=== PATIENT | male | born 1960 | race Caucasian/White ===

== ENCOUNTER 2018-07-12 19:24 | Emergency (ER) | payer OTHER, BC ==
[~2018-07-12] VITALS: Ht 182.9 cm; Wt 113.0 kg
[~2018-07-12 19:24] MED LIST: AMLODIPINE BESYL5 MG PO; ASPIRIN EC81 MG PO; CARVEDILOL25 MG PO; EFFIENT10 MG; EFFIENT10 MG PO; GLYBURID-METFO1 EACH PO; HYDROCHLOROTHIA25 MG PO; LIPITOR40 MG PO; LISINOPRIL-HCT1 EACH PO; NITROGLYCERIN0.4 MG SL; OMEPRAZOLE20 MG PO; ZYRTEC10 MG PO
[2018-07-12] MEDS ORDERED: VICTOZA 2-0.6 MG/0.1 SUB-Q ×3 (19:37→19:40)
[2018-07-12] MEDS ORDERED: OZEMPIC0.25 MG/0. (21:18)
[2018-07-12] MEDS ORDERED: METFORMIN HCL1000 M1 PO (21:24)
--- NOTE | 2018-07-12 23:00 | EKG ---
[facility] [address] [place], [place] [address] Signed Sinus tachycardia Left axis deviation Inferior infarct , age undetermined ST \T\ T wave abnormality, consider lateral ischemia Abnormal ECG No previous ECGs available Confirmed by GEOVANNY SHIELDS MD ([id number]) on 07/12/2018 11:00:27 PM Electronically Signed By: GEOVANNY SHIELDS MD 07/12/18 2300 PATIENT NAME: JEF HERMAN Electrocardiogram DATE OF : 60 PHYSICIAN: GEOVANNY SHIELDS MD REPORT #: [id number] REPORT IS CONFIDENTIAL AND NOT TO BE RELEASED WITHOUT AUTHORIZATION
== END 2018-07-12 22:28 | disposition short-term general hospital (02) ==
LOC: ED 19:24
DX: I21.4 Non-ST elevation (NSTEMI) myocardial infarction (principal); E11.65 Type 2 diabetes mellitus with hyperglycemia; I10 Essential (primary) hypertension; I25.2 Old myocardial infarction; Z79.82 Long term (current) use of aspirin; Z79.84 Long term (current) use of oral hypoglycemic drugs; Z79.899 Other long term (current) drug therapy
CPT/HCPCS: 71045; 80053; 84484; 85025; 93005; 93010; 96374; 96376; 99285-25

== ENCOUNTER 2018-11-16 05:45 | Inpatient (IN) | payer OTHER, BC ==
--- NOTE | 2018-11-09 16:01 | NUR ---
PATIENT HERE TODAY FOR PREADMISSION APPOINTMENT. HE IS SCHEDULED TO HAVE A RIGHT TOTAL KNEE ARTHROPLASTY DONE ON 11/16/18. HE REPORTS ATTENDING THE [facility] ALREADY AND WOULD LIKE PHYSICAL THERAPY SET UP WITH [facility]. HIS DAUGHTER OR GIRLFRIEND WILL TAKE HIM HOME WHEN HE IS DISCHARGED. HE WILL BE STAYING AT HIS GIRLFRIENDS HOUSE WHILE RECOVERING. SHE HAS ABOUT 10 STEPS INTO THE HOME WITH A HAND RAIL ON THE RIGHT SIDE. THERE IS A TUB/SHOWER AND THE PATIENT REPORTS HAVING A SHOWER BENCH ALREADY. HE WOULD LIKE CASE MANAGEMENT TO OBTAIN HIS WALKER. THIS INFORMATION WILL BE SENT TO DR PACHECO OFFICE AND CASE MANAGEMENT FOR FURTHER FOLLOW.
[~2018-11-16] VITALS: Ht 182.9 cm; Wt 104.3 kg
--- NOTE | ~2018-11-16 | DS ---
[facility] [address] [place], [place] [address] Draft ADMISSION DATE: 11/16/2018 DISCHARGE DATE: 11/18/2018 FINAL DIAGNOSES: At time of discharge: 1. End-stage osteoarthritis, right knee. 2. Diabetes. PROCEDURE: Right total knee arthroplasty. Total knee was an Attune fixed bearing PS knee. HISTORY OF PRESENT ILLNESS: The patient is a 57-year-old male with progressive osteoarthritis of both knees, more symptomatic on the right. He has reached the point where he is barely able to ambulate and gets no relief from conservative modalities, so he presents for elective total knee arthroplasty on the right. HOSPITAL COURSE: The patient was admitted to Day Surgery on the . He was taken to the operating room where under regional anesthesia and sedation, he underwent an uneventful right total knee arthroplasty. Postoperatively, he has done well. He had a little difficulty urinating the first night, but had a Moore placed and was pulled the next morning, and with the use of a little Flomax, he has been urinating fine. In terms of his right knee, he has done extremely well and has already met all of his physical therapy goals. His diabetes issues have been managed by the hospitalist who saw him in consultation and appeared to be stable. He is being discharged home today to begin outpatient physical therapy at [facility] outpatient physical therapy department starting next Thursday. They are going to continue him on Xarelto for DVT prophylaxis, Oxy IR, and Ultram as needed for pain relief. We will ask to see him back in about 4 weeks. MD YELENA Small/URI /[id number] PATIENT NAME: JEF HERMAN DISCHARGE SUMMARY DATE OF : 60 REPORT #: [id number] PHYSICIAN: TIANNA MANNING MD PCP: JAYLIN ERICKSON MD REPORT IS CONFIDENTIAL AND NOT TO BE RELEASED WITHOUT AUTHORIZATION [address] [place], [place] [address] Draft Copies: ~ PATIENT NAME: JEF HERMAN DISCHARGE SUMMARY DATE OF : 60 REPORT #: [id number] PHYSICIAN: TIANNA MANNING MD PCP: JAYLIN ERICKSON MD REPORT IS CONFIDENTIAL AND NOT TO BE RELEASED WITHOUT AUTHORIZATION
--- OUTSIDE RECORDS SUMMARY | ~2018-11-16 | XMS | Clinical Summary ---
Demographics + + + | Address | [address] | | | [place] [address] | + + + | Home Phone | | + + + | Preferred Language | Unknown | + + + | Marital Status | | + + + | Mormon Affiliation | Unknown | + + + | Race | Unknown | + + + | Ethnic Group | Unknown | + + + Author + + + | Author | [facility] | | | and [place] | + + + | Organization | [facility] | | | and [place] | + + + | Address | Unknown | + + + | Phone | Unavailable | + + + Support + + + + + | Name | Relationship | Address | Phone | + + + + + | Jodee Kruse | ECON | [place] | | | | | [phone] | | + + + + + Care Team Providers + +------+ + | Care Social Studies Teacher Name | Role | Phone | + +------+ + | Otis Genao MD | PP | | + +------+ + Allergies No Known Allergies Medications + + + +---------+------+------+-------+ | Medication | Sig | Dispensed | Refills | Star | End | Statu | | | | | | t | Date | s | | | | | | Date | | | + + + +---------+------+------+-------+ | traMADol (ULTRAM) | Take 50 mg by mouth | | 0 | | | Activ | | 50 mg tablet | every 6 hours as | | | | | e | | | needed for Pain. | | | | | | + + + +---------+------+------+-------+ | atorvaSTATin | Take 40 mg by mouth | | 0 | | | Activ | | (LIPITOR) 40 mg | nightly. | | | | | e | | tablet | | | | | | | + + + +---------+------+------+-------+ | omeprazole | Take 20 mg by mouth | | 0 | | | Activ | | (PRILOSEC) 20 mg | every morning | | | | | e | | capsule | (before breakfast). | | | | | | + + + +---------+------+------+-------+ | glyBURIDE | Take 10 mg by mouth | | 0 | | | Activ | | (DIABETA) 5 mg | 2 times daily (with | | | | | e | | tablet | breakfast & dinner). | | | | | | + + + +---------+------+------+-------+ | metFORMIN | Take 1,000 mg by | | 0 | | | Activ | | (GLUCOPHAGE) 1000 MG | mouth 2 times daily | | | | | e | | tablet | (with breakfast & | | | | | | | | dinner). | | | | | | + + + +---------+------+------+-------+ | | Take 25 mg by mouth | | 0 | | | Activ | | hydroCHLOROthiazide | Daily. | | | | | e | | 25 mg tablet | | | | | | | + + + +---------+------+------+-------+ | aspirin 81 mg EC | Take 81 mg by mouth | | 0 | | | Activ | | tablet | Daily. | | | | | e | + + + +---------+------+------+-------+ | amLODIPine | Take 5 mg by mouth | | 0 | | | Activ | | (NORVASC) 5 mg | Daily. | | | | | e | | tablet | | | | | | | + + + +---------+------+------+-------+ | bisoprolol | Take 1 tablet by | | 0 | 01/0 | | Activ | | (ZEBETA) 10 MG | mouth Daily. | | | 8/20 | | e | | tablet | | | | 19 | | | + + + +---------+------+------+-------+ | lisinopril | Take 1 tablet by | 30 | 0 | 01/0 | | Activ | | (PRINIVIL, ZESTRIL) | mouth 2 times daily. | tablet | | 8/20 | | e | | 20 mg tablet | | | | 19 | | | + + + +---------+------+------+-------+ | nitroglycerin | Place 1 tablet under | 25 | 0 | 01/0 | | Activ | | (NITROSTAT) 0.4 mg | the tongue every 5 | tablet | | 8/20 | | e | | SL tablet | minutes as needed | | | 19 | | | | | for Chest pain. | | | | | | | | Place 1 tablet under | | | | | | | | the tongue at the | | | | | | | | first sign of chest | | | | | | | | pain. May repeat | | | | | | | | every 5 minutes for | | | | | | | | a total of 3 doses | | | | | | | | and call 911 if | | | | | | | | chest pain continues | | | | | | + + + +---------+------+------+-------+ Active Problems + + + | Problem | Noted Date | + + + | NSTEMI (non-ST elevated myocardial infarction) | 07/12/2018 | + + + | Lumbar disc lesion | 04/14/2017 | + + + | Other acute osteomyelitis, other site | 04/11/2017 | + + + | HTN (hypertension), benign | 04/11/2017 | + + + | Type 2 diabetes mellitus without complication | 04/11/2017 | + + + Social History + +-------+ +--------+------+ | Tobacco Use | Types | Packs/Day | Years | Date | | | | | Used | | + +-------+ +--------+------+ | Never Smoker | | | | | + +-------+ +--------+------+ + +---+---+---+ | Smokeless Tobacco: | | | | | Former User | | | | + +---+---+---+ + + +---------+ + | Alcohol Use | Drinks/We | oz/Week | Comments | | | ek | | | + + +---------+ + | Yes | | | Occassionally | + + +---------+ + + + + | Sex Assigned at | Date Recorded | | | | + + + | Not on file | | + + + + + + + | Job Start Date | Occupation | Industry | + + + + | Not on file | Not on file | Not on file | + + + + + + + + | Travel History | Travel Start | Travel End | + + + + + + | No recent travel history available. | + + Last Filed Vital Signs + + + + | Vital Sign | Reading | Time Taken | + + + + | Blood Pressure | 116/86 | 07/13/2018 1637 PST | + + + + | Pulse | 87 | 07/13/2018 1530 PST | + + + + | Temperature | 36.3 C (97.3 F) | 07/13/2018 1519 PST | + + + + | Respiratory Rate | 17 | 07/13/2018 1530 PST | + + + + | Oxygen Saturation | 96% | 07/13/2018 1519 PST | + + + + | Inhaled Oxygen | - | - | | Concentration | | | + + + + | Weight | 113.4 kg (250 lb) | 07/13/2018 0900 PST | + + + + | Height | 182.9 cm (6') | 04/11/201756 PDT | + + + + | Body Mass Index | 33.91 | 04/11/201756 PDT | + + + + Plan of Treatment + + + + + | Health Maintenance | Due Date | Last Done | Comments | + + + + + | Hepatitis C | | | | | Screening | 1 | | | + + + + + | Diabetic Eye Exam | | | | | | 9 | | | + + + + + | Diabetic Foot Exam | | | | | | 9 | | | + + + + + | Hemoglobin A1c | | | | | Screening | 9 | | | + + + + + | Vaccine: | | | | | Pneumococcal 19-64 | 0 | | | | (PPSV23 only) Medium | | | | | Risk (1 of 1 - | | | | | PPSV23) | | | | + + + + + | Colorectal Cancer | | | | | Screening | 1 | | | | (Colonoscopy) | | | | + + + + + | Vaccine: Zoster (1 | | | | | of 2) | 1 | | | + + + + + | Vaccine: | | 07/01/2012 | | | Dtap/Tdap/Td (2 - | 2 | | | | Td) | | | | + + + + + | Vaccine: Influenza | Completed | 04/15/2018, 07/20/2012 | | + + + + + Results Not on filefrom Last 3 Months Insurance +-------+--------+ +--------+ +---------+------+ | Payer | Benefi | Subscriber | Effect | Phone | Address | Type | | | t Plan | ID | aaron | | | | | | / | | Dates | | | | | | Group | | | | | | +-------+--------+ +--------+ +---------+------+ | CIGNA | CIGNA | [id number] | 10/05/19 | [phone] | | PPO | | | PPO | | 15-Pre | 1 | | | | | | | sent | | | | +-------+--------+ +--------+ +---------+------+ | BCBS | BCBS | [id number] | 01/04/20 | | | PPO | | | OOS | 4 | 16-Pre | | | | | | PPO | | sent | | | | +-------+--------+ +--------+ +---------+------+ + +--------+ +--------+ + + | Guarantor Name | Accoun | Relation to | Date | Phone | Billing Address | | | t Type | Patient | of | | | | | | | | | | + +--------+ +--------+ + + | Carlos Manuel Kruse | Person | Self [birth year] | [address] | | | [place] | | 1961 | [phone] | [place] | | | [place] | | | [address] (Home) | [address] | + +--------+ +--------+ + + Advance Directives Patient has advance care planning documents, and code status on file. For more information, please contact:[facility] [place] [address] + + + + + | Code Status | Date | Date | Comments | | | Activated | Inactivated | | + + + + + | Full Code | 07/13/2018 | 07/13/2018 | | | | 0:16 | 19:51 | | + + + + + + + + +---+ | | | | | + + + +---+ | Full Code | 04/10/2017 | 04/15/2017 | | | | 23:39 | 17:08 | | + + + +---+"
--- OUTSIDE RECORDS SUMMARY | ~2018-11-16 | XMS | Clinical Summary ---
Demographics + + + | Address | [address] | | | [place] [address] | + + + | Home Phone | | + + + | Preferred Language | Unknown | + + + | Marital Status | | + + + | Anglican Affiliation | Unknown | + + + | Race | Unknown | + + + | Ethnic Group | Unknown | + + + Author + + + | Author | [facility] | + + + | Organization | [facility] | + + + | Address | Unknown | + + + | Phone | Unavailable | + + + Support + + +---------+ + | Name | Relationship | Address | Phone | + + +---------+ + | Jodee Kruse | ECON | Unknown | | + + +---------+ + Care Team Providers + +------+ + | Care Marine Designer Name | Role | Phone | + +------+ + | Otis Genao MD | PP | | + +------+ + Allergies No Known Allergies Current Medications + + +---------+---------+------+------+-------+ | Prescription | Sig. | Disp. | Refills | Star | End | Statu | | | | | | t | Date | s | | | | | | Date | | | + + +---------+---------+------+------+-------+ | cetirizine | Take 10 mg by mouth | | | | | Activ | | (ZYRTEC) 10 MG | daily. allergy | | | | | e | | tablet | | | | | | | + + +---------+---------+------+------+-------+ | | Take 2 tablets by | | | | | Activ | | glyBURIDE-metformin | mouth 2 (two) times | | | | | e | | (GLUCOVANCE) 5-500 | daily with meals. | | | | | | | MG per tablet | | | | | | | + + +---------+---------+------+------+-------+ | nitroGLYCERIN | Place 0.4 mg under | | | | | Activ | | (NITROSTAT) 0.4 MG | the tongue every 5 | | | | | e | | SL tablet | (five) minutes as | | | | | | | | needed for Chest | | | | | | | | pain. | | | | | | + + +---------+---------+------+------+-------+ | omeprazole | Take 20 mg by mouth | | | | | Activ | | (PRILOSEC) 20 MG | every morning before | | | | | e | | capsule | breakfast. | | | | | | + + +---------+---------+------+------+-------+ | magnesium oxide | Take 1 tablet by | 30 | 0 | 08/2 | 10/2 | Activ | | (MAG-OX) 400 MG | mouth daily. | tablet | | 0/20 | 920 | e | | tablet | | | | 15 | 19 | | + + +---------+---------+------+------+-------+ | aspirin 81 MG | Take 1 tablet by | 30 | 0 | 11/1 | | Activ | | chewable tablet | mouth daily. | tablet | | 10/23 | | e | | | | | | 17 | | | + + +---------+---------+------+------+-------+ | | Take 2 capsules by | | | | | Activ | | Svxtuew-Jxerbypwc-Ny | mouth daily. | | | | | e | | ivis D (CALCIUM 500 | | | | | | | | PO) | | | | | | | + + +---------+---------+------+------+-------+ | potassium chloride | Take 1 capsule by | 30 | 11 | 11/0 | 11/0 | Activ | | (MICRO-K) 10 MEQ CR | mouth daily. | capsule | | / | 12/23 | e | | capsule | | | | 18 | 19 | | + + +---------+---------+------+------+-------+ | celecoxib | Take 1 capsule by | | | 11/1 | | Activ | | (CELEBREX) 200 MG | mouth daily. | | | 4/20 | | e | | capsule | | | | 18 | | | + + +---------+---------+------+------+-------+ | amLODIPine | Take 1 tablet by | 90 | 3 | 12/1 | | Activ | | (NORVASC) 5 MG | mouth daily. | tablet | | 0/20 | | e | | tablet | | | | 18 | | | + + +---------+---------+------+------+-------+ | atorvastatin | Take 1 tablet by | 90 | 3 | 12/1 | | Activ | | (LIPITOR) 40 MG | mouth nightly. | tablet | | 0/20 | | e | | tablet | | | | 18 | | | + + +---------+---------+------+------+-------+ | bisoprolol | Take 1 tablet by | 90 | 11 | 12/1 | 12/1 | Activ | | (ZEBETA) 10 MG | mouth nightly. | tablet | | 0/20 | 0/20 | e | | tablet | | | | 18 | 19 | | + + +---------+---------+------+------+-------+ | | Take 1 tablet by | 90 | 3 | 12/ | | Activ | | lisinopril-hydrochlo | mouth daily. | tablet | | 0/20 | | e | | rothiazide | | | | 18 | | | | (PRINZIDE,ZESTORETIC | | | | | | | | ) 20-25 MG per | | | | | | | | tablet | | | | | | | + + +---------+---------+------+------+-------+ Active Problems + + + | Problem | Noted Date | + + + | Coronary artery disease involving nondalton coronary artery of | 05/03/2018 | | nondalton heart | | + + + | Mixed hyperlipidemia | 05/03/2018 | + + + | S/P lumbar laminectomy | 06/02/2017 | + + + | Degeneration of lumbar intervertebral disc | 04/27/2017 | + + + + + | Overview: Added automatically from request for surgery [id number] | + + + + + | Lumbar stenosis with neurogenic claudication | 04/27/2017 | + + + + + | Overview: Added automatically from request for surgery [id number] | + + + + + | Other chest pain | 02/22/2015 | + + + | Obesity, unspecified | 02/22/2015 | + + + | Presence of drug coated stent in LAD coronary artery | 07/19/2012 | + + + + + | Overview: 3.5x20 mm Promus Element Plus MARYANNE proximal LAD | + + + + + | History of non-ST elevation myocardial infarction (NSTEMI) | 07/18/2012 | + + + | Leukocytosis, unspecified | 07/18/2012 | + + + | Essential hypertension | 07/18/2012 | + + + | LFT elevation | 07/18/2012 | + + + | S/P drug eluting coronary stent placement | 12/10/2006 | + + + + + | Overview: OM2 - 3.5x20 mm Promus Element Plus MARYANNE | + + + + + | H/O right coronary artery stent placement | 12/03/2006 | + + + + + | Overview: 3.5x32 mm Taxus MARYANNE | + + + +---+ | Old myocardial infarction | | + +---+ | DM type 2 (diabetes mellitus, type 2) | | + +---+ | Ischemic dilated cardiomyopathy (HCC) | | + +---+ Resolved Problems + + + + | Problem | Noted | Resolved | | | Date | Date | + + + + | Coronary artery disease due to calcified coronary lesion | 02/23/20 | | | | 15 | 8 | + + + + | ARF (acute renal failure) | 02/23/20 | | | | 15 | 8 | + + + + Immunizations + + + + | Name | Dates Previously Given | Next Due | + + + + | Influenza Split | 07/20/2012 | | + + + + Family History + + +------+ + | Medical History | Relation | Name | Comments | + + +------+ + | COPD | Mother | | | + + +------+ + | Cancer | Mother | | lung CA | + + +------+ + | High cholesterol | Mother | | | + + +------+ + + +------+ + + | Relation | Name | Status | Comments | + +------+ + + | Brother | | Alive | | + +------+ + + | Brother | | Alive | | + +------+ + + | Daughter | | Alive | | + +------+ + + | Father | | | sepsis, osteomyelitis | | | | (Age | | | | | 77) | | + +------+ + + | Mother | | | unknown cause of | | | | (Age | | | | | 74) | | + +------+ + + | Son | | Alive | | + +------+ + + Social History + +-------+ +--------+------+ | Tobacco Use | Types | Packs/Day | Years | Date | | | | | Used | | + +-------+ +--------+------+ | Never Smoker | | | | | + +-------+ +--------+------+ + +---+---+---+ | Smokeless Tobacco: | | | | | Never Used | | | | + +---+---+---+ + + +---------+ + | Alcohol Use | Drinks/We | oz/Week | Comments | | | ek | | | + + +---------+ + | Yes | | | occasional | + + +---------+ + + + + | Sex Assigned at | Date Recorded | | | | + + + | Not on file | | + + + Last Filed Vital Signs + + + + | Vital Sign | Reading | Time Taken | + + + + | Blood Pressure | 138/80 | 06/14/2018 12:36 PM PST | + + + + | Pulse | 121 | 06/14/2018 12:36 PM PST | + + + + | Temperature | 38.1 C (100.5 F) | 05/20/2017 7:00 AM PST | + + + + | Respiratory Rate | 18 | 06/14/2018 12:36 PM PST | + + + + | Oxygen Saturation | 97% | 06/14/2018 12:36 PM PST | + + + + | Inhaled Oxygen | - | - | | Concentration | | | + + + + | Weight | 116.1 kg (256 lb) | 06/14/2018 12:36 PM PST | + + + + | Height | 182.9 cm (6') | 06/14/2018 12:36 PM PST | + + + + | Body Mass Index | 34.72 | 06/14/2018 12:36 PM PST | + + + + Plan of Treatment +--------+---------+ + + + | Date | Type | Specialty | Care Team | Description | +--------+---------+ + + + | 11/30/ | Office | | Juan Alberto Lehman, | | | 2019 | Visit | | MD [address] | | | | | | [place], | | | | | | [place] [address] | | | | | | [phone] | | | | | | | | +--------+---------+ + + + + + + + + | Health Maintenance | Due Date | Last Done | Comments | + + + + + | Diabetic Eye Exam | | | | | | 1 | | | + + + + + | Diabetic Foot Exam | | | | | | 1 | | | + + + + + | Microalbumin | | | | | Screening | 1 | | | + + + + + | Vaccine: | | | | | Dtap/Tdap/Td (1 - | 0 | | | | Tdap) | | | | + + + + + | Vaccine: | | | | | Pneumococcal 19-64 | 0 | | | | (PPSV23 only) Medium | | | | | Risk (1 of 1 - | | | | | PPSV23) | | | | + + + + + | Colon Cancer | | | | | Screening | 1 | | | | (Colonoscopy) | | | | + + + + + | Vaccine: Zoster (1 | | | | | of 2) | 1 | | | + + + + + | Hemoglobin A1c | | 02/22/2015, 07/19/2012 | | | | 5 | | | + + + + + | Vaccine: Influenza | | | | | (Season Ended) | 9 | | | + + + + + Results Not on filefrom Last 3 Months Insurance +---------+--------+ +------+-------+---------+ | Payer | Benefi | Subscriber | Type | Phone | Address | | | t Plan | ID | | | | | | / | | | | | | | Group | | | | | +---------+--------+ +------+-------+---------+ | CIGNA | CIGNA | [id number] | | | | | | - | | | | | | | [place] | | | | | | | [place] | | | | | +---------+--------+ +------+-------+---------+ | REGENCE | REGENC | [id number] | | | | | | E-OREG | 4 | | | | | | ON | | | | | +---------+--------+ +------+-------+---------+ + +--------+ +--------+ + + | Guarantor Name | Accoun | Relation to | Date | Phone | Billing Address | | | t Type | Patient | of | | | | | | | | | | + +--------+ +--------+ + + | CARLOS MANUEL KRUSE | Person | Self [birth year] | Home: | [address] | | | al/Fam | | 1961 | [phone] [place] | | | [place] | | | [phone] | [phone] | + +--------+ +--------+ + +"
[~2018-11-16 05:45] MED LIST changes: +ACTOS15 MG PO; +BISOPROLOL FUMA10 MG PO; +CELEBREX200 MG PO; +GLYBURIDE-METF1 EAC1 PO; +LISINOPRIL-HCT1 EAC1 PO; +METFORMIN HCL1000 M1 PO; +OZEMPIC0.25 MG/0.; +TRULICITY0.75 MG/0. SUB-Q; +VICTOZA 2-0.6 MG/0.1 SUB-Q; +XANAX0.5 MG PO; +ZOLOFT50 MG PO
--- NOTE | 2018-11-16 09:51 | NUR ---
[facility] IN PACU WIDE AWAKE WITH NO C/O'S. O2 SATS 90% ON RA. ENCOURAGED COUGH, DEEP BREATHING. 944 BLOOD SUGAR 128. NO C/O'S PAIN. SPINAL LEVEL AT T-10.
--- NOTE | 2018-11-16 12:37 | NUR ---
BIPAP REMOVED FROM PT DUE TO PT REQUESTING TO HAVE IT OFF. OXYGEN SATURATION ON RA IS 95% OFF BIPAP. PT AWAKE AND VISITING WITH . RT AWARE AND IS OK TO HAVE BIPAP REMOVED.
--- NOTE | 2018-11-16 12:51 | NUR ---
PT AWAKE, HOB ELEVEATED. PT TOLERATED A SMALL SNACK AND LUNCH ORDERED. PT DENIES PAIN AND OR SOB. SPINAL STILL RESOLVING, AT L4 APPROX. PT'S OXYGEN SATURATION LEVEL IS 98%. CMS INTACT TO RIGHT KNEE. BULKY DRESSING IS CDI, ICE OVER DRESSING. PERSONAL SUPPLIES AND CALL LIGHT WITHIN REACH. NO NEEDS AT THIS TIME.
--- NOTE | 2018-11-16 13:46 | NUR ---
PT AWAKE, ALERT AND ORIENTED X3. CMS INTACT TO RIGHT KNEE, DRESSING CDI. PT'S SPINAL AT L3. VS STABLE. CPOX INTACT SAT LEVEL ON RA 96%. PT TOLERATING SNACK FODDS/PO INTAKE WELL. PERSONAL SUPPLIES AND CALL LIGHT WITHIN REACH. NO NEEDS AT THIS TIME.
--- NOTE | 2018-11-16 15:03 | NUR ---
PT AWAKE, ALERT AND ORIENTED X3. PT DENIES PAIN AT THIS TIME. CMS INTACT TO RIGHT KNEE. SPINAL RESOLVED, NUMB AT BOTTOM OF RIGHT FOOT. PT DENIES NEEDS AT THIS TIME. VS STABLE AT THIS ITME. CPOX INTACT AND 02 SAT LEVEL 96% ON RA. PT DENIES NEED TO VOID. PERSONAL SUPPLIES AND CALL LIGHT WITHIN REACH. NO NEEDS.
--- NOTE | 2018-11-16 16:29 | NUR ---
PATIENT CALLED AND ASKED FOR 2 ICE PACKS, ICE PACKS GIVEN. CALL LIGHT IN REACH. NO FURTHER NEEDS AT THIS TIME.
--- NOTE | 2018-11-16 16:34 | NUR ---
PT AWAKE, ALERT AND ORIENTED X3. PT'S VS ARE STABLE, 02 95% ON RA. PT DENIES PAIN IN RIGHT KNEE. PT DENIES NEEDS. PT REPORTS FULL SENSATION TO RIGHT LEG, SLIGHT NUMBNESS TO BOTTOM OF RIGHT FOOT. PT HAS NO NEEDS. PERSONA SUPPLIES AND CALL LIGHT WITHIN REACH.
--- NOTE | 2018-11-16 18:22 | NUR ---
PT UNABLE TO VOID OF YET. BLADDER SCAN DONCE; 461ML. PT REPORTS HE DOES NOT HAVE SENSATION TO URINATE.
--- NOTE | 2018-11-16 18:23 | NUR ---
PT A&OX3. ON RA. TOLERATING DIET. STANDBY ASSIST WITH ALKER. WORKED WITH PT TODAY, GUS WELL. ICE OVER INCISION. SPINAL RESOLVED. CALLS APPROP. IV SL.
--- NOTE | 2018-11-16 18:31 | NUR ---
PT UNABLE TO VOID OF YET. BLADDER SCAN DONE; 461ML. CALLED DR. MANNING. NEW ORDER RECEIVED TO PLACE POTTS TONIGHT AND REMOVE IN AM. PT DECLINING POTTS AT THIS TIME AND WOULD LIKE TO ATTEMPT TO VOID. PT UP IN BATHROOM ATTEMPTING TO VOID AT THIS TIME.
--- NOTE | 2018-11-16 19:10 | NUR ---
ROUNDED CHARGE. PATIENT IS RESTING IN BED. PATIENT DENIES ANY COMMENTS, QUESTIONS, OR CONCERNS. NO NEEDS NOTED. CALL LIGHT IN REACH.
--- NOTE | 2018-11-16 19:14 | NUR ---
INSERTED INDWELLING POTTS PER DOC ORDER USING STERILE TECHNIQUE. IMMEDIATE RETURN OF CONCENTRATED YELLOW URINE NOTED. PT TOLERATED WELL.
--- NOTE | 2018-11-16 21:26 | NUR ---
V/S DONE AND CHARTED. ICE WATER REFILLED. NO OTHER NEEDS AT THIS TIME.
--- NOTE | 2018-11-16 23:55 | NUR ---
CALLED RT TO CHECK PATIENT. SATS ARE FLUCTUATING FROM 87-91. NO INTERVENTION AT THIS TIME. PATIENT RESTING QUIETLY ON HIS RIGHT SIDE EYES CLOSED, RESPIRATIONS ARE REGULAR AND EVEN AT 16.
--- NOTE | 2018-11-17 02:00 | NUR ---
PATIENT HAS NO CURRENT NEEDS. IN BED WATCHING TV WITH 2 [employer] OFFICERS.
--- NOTE | 2018-11-17 03:49 | NUR ---
JUST HUNG A NEW BAG OF D5LR. PATIENT STILL HAS NO CARE NEEDS AND 2 [employer] OFFICERS STILL IN THE ROOM AT BEDSIDE.
--- NOTE | 2018-11-17 06:33 | NUR ---
PATIENT SAID HE FELT LIKE SLEPT PRETTY WELL. HD DID DESAT WHILE SLEEPING AND HAD TO BE PUT ON 2L/NC. RT TIRATED IT DOWN TO 1L/NC. AND PATIENT SATING 93% AT THIS TIME AND IS ON RA. RIGHT KNEE DRESSING CDI. PAIN IS 5/10 AND PATIENT JUST GIVEN 10MG PO OXCODONE.
--- NOTE | 2018-11-17 07:25 | NUR ---
BEDSIDE HANDOFF REPORT RECEIVED FROM EVENT PROMOTER RN. PT RESTIGN IN BED. PT DENIES NEEDS AT THIS TIME.
--- NOTE | 2018-11-17 08:30 | NUR ---
PT SITTING IN CHAIR. PT RATING PAIN 1/10 TO RIGHT KNEE. PT BLOOD GLUCOSE 65, GIVEN JUICE, NOTIFIED, REASSESSED BLOOD GLUCOSE AT 104. PT ON ROOM AIR, LUNG SOUNDS CLEAR, DENIES SOB. PT BOWEL TONES ACTIVE, TOLERATING ADA DIET, DENIES NAUSEA. PT WITH DRESSING TO RIGHT KNEE, SMALL AMOUNT OF SHADOWING TO COMFORT BANDAGE ON BELOW KNEE. CMS INATCT, WITHOUT EDEMEA. BACTROBAN APPLIED TO RIGHT SECOND TOES, BANDAID CHANGED. PT DUE TO VOID, POTTS CATH REMOVED THIS AM. IV SALINE LOCKED, FLUSHED, PATENT. PT DENIES OTHER NEEDS AT THIS TIME, DISCUSSED PLAN OF CARE FOR THE DAY.
--- NOTE | 2018-11-17 11:00 | OR ---
[facility] [address], [place] [address] Signed DATE OF OPERATION: 11/16/2018 SURGEON: Rafa Manning MD PREOPERATIVE DIAGNOSIS: End-stage osteoarthritis, right knee. POSTOPERATIVE DIAGNOSIS: End-stage osteoarthritis, right knee. PROCEDURE: Right total knee arthroplasty. IMPLANTS: An Attune size #8 PS femur, size #8 fixed bearing tibial tray, a 6 mm size #8 poly, and a 38 mm all-poly patella. TOURNIQUET TIME: 90 minutes. COMPLICATIONS: There were no intraoperative complications. ANESTHESIA: Spinal with sedation. WHAT WAS DONE: The patient was taken to the operating room. After anesthesia was induced and airway secured, the patient was positioned, prepped and draped in a routine sterile fashion. After a time out and confirmation of the patient, the procedure, and the perioperative medications, the right leg was exsanguinated with elevation. Pneumatic tourniquet was then inflated to 300 mmHg pressure. A straight anterior approach was made to the knee through skin and subcutaneous tissue. A small medial flap was created and an anteromedial arthrotomy performed. The remnants of the medial meniscus and the fat pad were excised. The patella was then everted. The patella measured 24 mm. We trimmed 10 mm off the patella and made drill holes for 38 mm all-poly patella. We then placed the trial patella on the back of the kneecap and we had re-constituted the 24 mm height. We then placed the patella in the lateral recess and flexed the knee. Using the GuardiCore navigation system, we digitized the distal end of the femur per the protocol and then resected about 11 mm off the high side, which was the lateral side. The femoral wafers Electronically Signed By: RAFA MANNING MD 11/17/18 [facility] PATIENT NAME: JEF HERMAN OPERATIVE REPORT DATE OF : 60 REPORT #: [id number] PHYSICIAN: RAFA MANNING MD PCP: JAYLIN ERICKSON MD REPORT IS CONFIDENTIAL AND NOT TO BE RELEASED WITHOUT AUTHORIZATION [facility] [address] [place], [place] [address] Signed were then removed. We then transitioned the navigation system to the proximal tibia and again following the protocol digitized the proximal tibia. We then resected the proximal tibia approximately 8 mm off the high (lateral) side in neutral varus valgus, and with 3 degrees of posterior slope per the Attune protocol. We then removed the tibial wafer. The knee was placed in extension and we actually had an excellent flexion gap with the [address] There was good varus valgus alignment and stability. We then flexed the knee and placed the femoral sizing guide on the distal femur, which sized to a size #8. We then secured the 4-in-1 cutting block on the distal femur. We again used the spacer block to make sure we had an adequate flexion gap, which seemed a little tight. We therefore transitioned the femoral 4-in-1 cutting block anteriorly 1.5 mm. We then secured it to the bone and then this performed the anterior, posterior, and chamfer cuts. The bone fragments were removed. The notch cutting block was then placed on the distal femur and the notch was cut out. We removed the fragment along with remnants of the ACL and PCL. We then placed the lamina storage facility housekeeper in the joint laterally and distracted the joint in flexion. We then used a #15 blade to remove remnants of the medial meniscus. We then used a curved osteotome to remove the posterior osteophytes off the medial femoral condyle and remove them from the knee. We then switched the lamina storage facility housekeeper medially and again the removed remnants of the lateral meniscus, some redundant soft tissue laterally, and the posterolateral osteophytes on the distal femur. After this was accomplished, we placed the femoral trial on the distal femur and the size #8 tibial tray on the proximal tibia along with a 6 mm poly insert. We then cycled the knee. We were happy with alignment position and stability. We marked the rotational alignment of the tibial tray. The knee was then flexed. All the trials were removed and the tibia was prepared with a standard reamers and broaches. The knee was then copiously irrigated and meticulously dried. A batch of antibiotic cement (the patient was diabetic) was then mixed and the tibial tray and the femoral component and the patellar button were then cemented into place. Marginal cement was removed and the 6 mm trial tibial tray was clamped onto the tibial base plate, and the knee was held in gentle full extension while the cement cured. Once the cement had cured, we removed the trial. We trialed a 7 mm poly, but appeared to compromise our extension ever so slightly. We therefore copiously irrigated the knee including Irrisept and we then placed the real 6 mm size #8 poly implant in the knee and snap fitted to the tibial tray. We then cycled the knee. We had good alignment, good position, excellent stability, and a good patellofemoral tracking. We then copiously irrigated the knee and a routine wound closure was accomplished. Sterile dressings were applied. The patient was awakened, taken to recovery room, and arrived in stable condition. Counts were correct and antibiotic protocols were followed. Rafa Manning MD Electronically Signed By: RAFA MANNING MD 11/17/18 1100 PATIENT NAME: JEF HERMAN OPERATIVE REPORT DATE OF : 60 REPORT #: [id number] PHYSICIAN: RAFA MANNING MD PCP: JAYLIN ERICKSON MD REPORT IS CONFIDENTIAL AND NOT TO BE RELEASED WITHOUT AUTHORIZATION [address] [place], [place] [address] Signed [facility]/MODL /[id number] Copies: ~ Electronically Signed By: RAFA MANNING MD 11/17/18 1100 PATIENT NAME: JEF HERMAN OPERATIVE REPORT DATE OF : 60 REPORT #: [id number] PHYSICIAN: RAFA MANNING MD PCP: JAYLIN ERICKSON MD REPORT IS CONFIDENTIAL AND NOT TO BE RELEASED WITHOUT AUTHORIZATION
--- NOTE | 2018-11-17 12:00 | NUR ---
PT VOIDED 50 ML CONCENTRATED URINE, PAIN WITH URINATION. EDUCATED ON DISCOMFORT OF URINATION AFTER CATH REMOVAL, ENCOURAGED TO DRINK FLUIDS. BLADDER SCAN FOR 120 ML. PT GIVEN FLOMAX PER ORDER. PT BLOOD GLUCOSE 152, GIVEN 1 UNIT SS HUMALOG. PT COMPLETED WITH THERAPY, PT RATING PAIN 2-3/10, DECLINING PAIN MEDICATION AT THIS TIME.
--- NOTE | 2018-11-17 12:30 | NUR ---
FAXED FACESHEET, ORDER, OP REPORT, PROG NOTES AND PT EVAL TO [facility] FOR A FRONT WHEELED WALKER FOR THE PT. ALSO TOLD THEM PT IS 6'0" TALL AND WEIGHS 240 LBS. TALKED TO [place] AT [facility]. RECIEVED FAX CONFIRMATION OF THIS.
--- NOTE | 2018-11-17 12:34 | NUR ---
PT ALERT, ORIENTED AND SITTING IN CHAIR. PT IS WAITING FOR P.T. AND VISIT FROM DR MANNING. HE HOPES TO BE DC'D TODAY, GIRLFRIEND WILL TAKE HIM HOME. PAIN IS UNDER CONTROL AND MENTIONED THAT HE IS TO HAVE A SLEEP STUDY SOON. HAD PLEASANT VISIT, DR MANNING IN. EXTENDED A BLESSING, WILL FOLLOW NEEDED
--- NOTE | 2018-11-17 13:30 | NUR ---
PT RESTING IN BED. PT RATING PAIN 4/10 TO RIGHT KNEE, GIVEN SCHEDULED TYLENOL TORADOL AND 5 MG PO DILAUDID. DRAINAGE TO RIGHT UNCHANGED, CMS INTACT, SCDS IN PLACE. IV SALINE LOCKED, FLUSHED. PT ON ROOM AIR, O2 SATS 94%, CONTINUOUS PULSE OX IN PLACE. PT DENIES OTHER NEEDS AT THIS TIME.
--- NOTE | 2018-11-17 14:38 | NUR ---
PT UP TO BATHROOM AND WAS ABLE TO VOID 375. IS GOING ON A WALK WITH ROGER JARVIS.
--- NOTE | 2018-11-17 16:30 | NUR ---
PT COMPLAINT OF INCREASED RIGHT KNEE PAIN AFTER P.T. PT GIVEN SECOND 5MG PO DILAUDID. PT DENIES OTHER NEEDS AT THIS TIME.
--- NOTE | 2018-11-17 17:17 | NUR ---
PT RATING PAIN 1-2/10, STATES TOLERABLE, DECLINING NEED FRO ADDITIONAL PAIN MEDICATION. BG 114, SS HUMALOG HELD. PT EATIGN DINNER. PT DENIES OTHER NEEDS AT THIS TIME.
--- NOTE | 2018-11-17 17:18 | NUR ---
PT WILL SLOW URINE PRODUCTION THIS AM, IMPROVED THIS AFTERNOON, QS. PT WORKED WITH PT/OT, WALKED IN JENSEN. PAIN WELL CONTROLLED WITH SCHEDULED TYLENOL/TORADOL AND PRN DILAUDID. PT TOELRATING ADA DIET, HYPOGLYCEMIC THIS AM CORRECTED WITH JUICE, METFORMIN AND GLYBURIDE HELD. PT WITH RIGHT KNEE DRESSING, SMALL AMOUNT OF SHADOWING TO COMFORT. PT SBA WITH WALKER.
--- NOTE | 2018-11-17 19:30 | NUR ---
REPORT RECEIVED. PT IN BED ALERT AND ORIENTED VISITING WITH SIGNIFICANT OTHER. SCD'S AND ICE PACKS IN PLACE. PATIENT STATES PAIN IS 2/10. NO OTHER REQUESTS AT THIS TIME. CALL LIGHT IN REACH.
--- NOTE | 2018-11-17 20:30 | NUR ---
ROUNDED CHARGE. RAUL STUDENT RN IN ROOM. TO ASSES. PATIENT DENIES ANY COMMENTS, QUESTIONS, OR CONCERNS. NO NEEDS NOTED. CALL LIGHT IN REACH.
--- NOTE | 2018-11-17 20:45 | NUR ---
ASSESSMENT COMPLETE. PM MEDICATIONS GIVEN WITHOUT DIFFICULTY. PT REFUSED 500 MG OF GLUCOPHAGE. STATES HE ONLY TAKES 500 MG AT NIGHT WHEN HE IS HOME, AND DID NOT WANT TO TAKE 1,000 MG HERE. BS WAS 137. PT 96% ON RA, RR EVEN AND UNLABORED. ICE PACKS AND SCD'S IN PLACE. NO OTHER REQUESTS AT THIS TIME. CALL LIGHT IN REACH.
--- NOTE | 2018-11-17 22:10 | NUR ---
PT UP TO BR WITH MINIMAL STANDBY ASSIST AND FWW TO VOID 400 ML OF YELLOW URINE. PT STATES PAIN IS 4/10 AFTER AMBULATION AND THAT HE IS SORE IN BOTH KNEES A RESULT OF PT TODAY. PT DENIES THE NEED FOR ADDITIONAL PAIN MEDICATION. ICE PACKS AND SCD'S IN PLACE. CALL LIGHT IN REACH.
--- NOTE | 2018-11-18 00:13 | NUR ---
PT IN BED RESTING WITH EYES CLOSED. RR EVEN AND UNLABORED. CPOX READS 96 ON RA. CALL LIGHT IN REACH.
--- NOTE | 2018-11-18 02:24 | NUR ---
IN TO PT'S ROOM, CPOX NOTED O2 TO BE AT 67%. PT AROUSED EASILY, EDUCATED TO TAKE 2-3 DEEP BREATHS, O2 INCREASED TO 89-90%. PT ALERT AND ORIENTED. AMB TO BR WITH MINIMAL ASSIST AND FWW. NEW ICE PACKS PROVIDED, SCD'S IN PLACE. SCHEDULED MEDS ADMINISTERED, PT STATES PAIN IS 2/10. WILL CONTINUE TO MONITOR PT'S O2 STATUS. CALL LIGHT IN REACH.
--- NOTE | 2018-11-18 04:04 | NUR ---
PT AMB TO BR WITH MINIMAL STANDBY ASSIST TO VOID 500 ML CLEAR YELLOW URINE. ASSESSMENT COMPLETE. PT STATES PAIN IS 1/10. CPOX IN PLACE, SCD'S AND ICE PACKS APPLIED. PATIENT HAS NO OTHER REQUESTS AT THIS TIME. CALL LIGHT IN REACH.
--- NOTE | 2018-11-18 05:37 | NUR ---
PT RESTED WELL THROUGHOUT THE NIGHT. CPOX NOTED TO BE LOW 67%. PT AROUSES EASILY AND SATS RECOVER AFTER 2-3 DEEP BREATHS. DRESSING ON THE RIGHT KNEE IS CDI WITH A SMALL AMOUNT OF DRIED BLOOD ON THE LOWER PORTION OF THE COMFORT WRAP. PT'S PAIN LEVEL HAS BEEN 1-2/10 IN THE RIGHT KNEE. PT ALSO C/O HIS LEFT KNEE BEING SORE FOLLOWING PT YESTERDAY.
--- NOTE | 2018-11-18 06:10 | NUR ---
PT RESTING IN BED WITH EYES CLOSED. CPOX NOTED TO BE 81%, PT WAKENED AND INSTRUCTED TO DEEP BREATHE, O2 SATS IMMEDIATELY INCREASED TO 94%. FRESH ICE PACKS APPLIED TO RIGHT KNEE. PT STATES PAIN IN HIS RIGHT KNEE IS 1/10. NO OTHER REQUESTS AT THIS TIME. CALL LIGHT IN REACH.
--- NOTE | 2018-11-18 08:07 | NUR ---
Blood glucose was measured at 99 by PADDING GLUER. Humalog insulin was not given because this is within normal limits. Ketoralac and acetaminophen were given for pain that was rated as a 2. Patient is ambulating with front wheel walker as reported by patient. Patient reports urinating on his own without difficulty. Patient does not report any bowel movement, but is passing gas. Entering the room, the patient was sitting up in the chair and eager to eat breakfast.
--- NOTE | 2018-11-18 08:11 | NUR ---
PATIENT UP TO CHAIR, SBA FWW. CALL LIGHT IN REACH. NO FURTHER NEEDS AT THIS TIME.
--- NOTE | 2018-11-18 09:25 | NUR ---
CHECKED WITH PT AND HE STATES HIS FRONT WHEELED WALKER CAME YESTERDAY AFTERNOON.
--- NOTE | 2018-11-18 09:30 | NUR ---
PT RESTING IN BED. PT ON ROOM AIR, LUNG SOUNDS CLEAR, O2 SATS 93%. PT RATING PAIN 2/10. IV SALINE LOCKED PT TOLERATING ADA DIET, GOOD APPETITE. PT WITH RIGHT KNEE DRESSING, SMALL AMOUNT OF DRIED DRAINAGE, UNCHANGED FROM YESTERDAY. SCDS IN PLACE, CMS INTACT. BOWEL TONES ACTIVE, PT CONCERNED ABOUT HAVING BM, RECEIVING MIRALAX AND MILK OF MAG, DISCUSSED WITH PT. PT ANTICIPATING DISCHARGE, DISCUSSED PLAN OF CARE FOR THE DAY. PT DENIES OTHER NEEDS AT THIS TIME.
[2018-11-18] MEDS ORDERED: MUPIROCIN22 GM TOP (09:58)
[2018-11-18] MEDS ORDERED: DICLOFENAC SOD100 G1 TOP (09:58)
[2018-11-18] MEDS ORDERED: AMOX TR-K CLV1 EAC1 PO (09:59)
[2018-11-18] MEDS ORDERED: METOPROLOL SUCC50 MG PO (10:00)
[2018-11-18] MEDS ORDERED: POTASSIUM CHLO10 MEQ PO (10:26)
[2018-11-18] MEDS ORDERED: METFORMIN HCL1000 MG PO (10:27)
--- NOTE | 2018-11-18 10:30 | NUR ---
THIS RN ASSUMING CARE OF PT. REPORT RECEIVED FROM BEATRICE BROWN. PT UP WITH PHYSICAL THERAPY. PT REPORTS 2/10 PAIN AND DENIES NEED FOR PAIN MEDICAITON. PT ANTICIPATING DISCHARGE LATER TODAY. NO FURTHER REQUESTS OR COMPLAINTS AT THIS TIME.
[2018-11-18] MEDS ORDERED: XARELTO10 MG PO (10:42)
[2018-11-18] MEDS ORDERED: OXYCODONE HCL10 MG PO (10:44)
[2018-11-18] MEDS ORDERED: ULTRAM50 MG PO (10:45)
[2018-11-18] MEDS ORDERED: BACTRIM DS TAB1 EACH PO (10:46)
[2018-11-18] MEDS ORDERED: ANTIBIOTIC OINT28 GM TOP (10:49)
--- NOTE | 2018-11-18 12:39 | NUR ---
PT READY FOR DISCHRAGE. PT HAS BEEN UP TO SHOWER AND IS NOW BACK TO CHAIR DRESSED IN HOME CLOTHES. PT CONTINUES TO REPORT 2/10 PAIN. PT DENIES NEED FOR PAIN MEDICATION AT THIS TIME. DISCHARGE INSTRUCTIONS REVIEWED WITH PT. PT VERBALIZES UNDERSTANDING OF INSTRUCTIONS. PHARMACIST TO ROOM TO REVIEW MEDICATIONS WITH PT. PTS SIGNIFICANT OTHER PRESENT FOR ALL DISCHARGE INSTRUCTIONS. PT STATES ALL HIS QUESTIONS HAVE BEEN ANSWERED AND VERBALIZES UNDERSTANDING OF INSTRUCTIONS.
--- NOTE | 2018-11-18 12:53 | NUR ---
PT CONTINUES TO DENIE NEED FOR PAIN MEDICATION. PT TRANSFERES SELF TO WHEELCHAIR. VITALS TAKEN. PT WHEELED FROM UNIT WITH ALL PERSONAL BELONGINGS. PT STATES ALL HIS QUESTIONS AND CONCERNS HAVE BEEN ADDRESSED.
--- NOTE | 2018-11-18 14:27 | NUR ---
PT IS WAITING FOR LAST P.T. THEN DC. HE HAS NO PAIN, WHICH A GREAT IMPROVEMENT FROM BEFORE SURGERY. PT'S Louise.FRIEND IS COMING TO TAKE PT TO HER HOME FOR THE NEXT FEW DAYS. EXTENDED A BLESSING, WILL FOLLOW NEEDED
== END 2018-11-18 12:50 | disposition home or self-care (01) | DRG 470 ==
LOC: DS 05:45 → EDSTATUS 06:45 → DS 06:45 → MS 06:45 → DS 11:35 → MS 11:35
PROVIDERS: ADMIT Orthopaedic Surgery
PROC: 8E0YXBZ Computer Assisted Procedure of Lower Extremity (ICD-10-PCS; 2018-11-16)
PROC: 0SRC0J9 Replacement of Right Knee Joint with Synthetic Substitute, Cemented, Open Approach (ICD-10-PCS; principal; 2018-11-16 06:45)
DX: M17.11 Unilateral primary osteoarthritis, right knee (principal); E11.9 Type 2 diabetes mellitus without complications; I10 Essential (primary) hypertension; E78.00 Pure hypercholesterolemia, unspecified; I25.10 Atherosclerotic heart disease of native coronary artery without angina pectoris; Z95.5 Presence of coronary angioplasty implant and graft; Z87.891 Personal history of nicotine dependence; Z91.14 Patient's other noncompliance with medication regimen; Z79.84 Long term (current) use of oral hypoglycemic drugs; Z79.82 Long term (current) use of aspirin; Z79.899 Other long term (current) drug therapy
CPT/HCPCS: 01402; 36415; 51702; 73560; 80048; 85025; 94660; 94762; 97110; 97116; 97162; C1713; C1776; J0690; J1815; J1885; J2250; J2274; J2405; J2704; J3010; J3370; J7060; J7120

== ENCOUNTER 2021-10-02 05:55 | Day surgery (SDC) | payer OTHER, BC ==
[~2021-10-02] VITALS: Ht 182.9 cm; Wt 118.2 kg
--- NOTE | ~2021-10-02 | OR ---
[facility] [address] [facility] [place] [address] Draft DATE OF OPERATION: 10/02/2021 SURGEON: Alex Hernandez DPM PREOPERATIVE DIAGNOSES: 1. Diabetic ulcer with infection, right foot. 2. Osteomyelitis, right 5th metatarsal and 5th digit. POSTOPERATIVE DIAGNOSES: 1. Diabetic ulcer with infection, right foot. 2. Osteomyelitis, right 5th metatarsal and 5th digit. GLASSIE SURGEON: Bala Araya DPM ANESTHESIA: IV general with local block right foot. SOFTWARE DEVELOPER MANAGER: Huseyin Bangura CRNA SPECIMEN TO PATHOLOGY: Right 5th digit including soft tissue and bone and bone of distal right 5th metatarsal. PROCEDURES: 1. Amputation right 5th digit. 2. Debridement of ulcer and osteomyelitis, right 5th metatarsal. DESCRIPTION OF PROCEDURE: The patient was brought to the operating room and placed on the table in the supine position. Anesthesia Department administered IV sedation after which a local block was given to the right foot using a total of 10 mL 1:1 mixture of 0.5% ropivacaine plain and 2% lidocaine plain. The right leg and foot were then prepped and draped in the usual sterile manner and an Esmarch was used for hemostasis. Attention was initially directed to the ulcer site lateral right 5th metatarsal head. The incision created an ellipse around the ulcer completely excising the ulcer and then extended out to also ellipse right 5th digit. The incision was initially full-thickness and deep to bone around right 5th digit. The soft tissues then reflected proximally to expose the base of the proximal phalanx right 5th digit, which fell apart during PATIENT NAME: JEF HERMAN OPERATIVE REPORT DATE OF : 60 REPORT #: [id number] PHYSICIAN: ALEX HERNANDEZ DPM PCP: GEOVANNY SHIELDS MD REPORT IS CONFIDENTIAL AND NOT TO BE RELEASED WITHOUT AUTHORIZATION [facility] [address] [place], [place] [address] Draft excision of the toe. The toe including soft tissue and bone sent for pathology. The debridement then performed at the 5th metatarsophalangeal joint removing necrotic bone and tissue at this location, then the soft tissues were reflected proximally to expose the distal 5th metatarsal, the metatarsal head had eroded to the point that it was no longer obviously present and the distal portion of the remaining metatarsal was also soft and crumbly. A bone probe used to determine the level at which the bone felt solid and normal texture, the power saw then used to resect the distal portion of the metatarsal at the level where the bone appeared to be solid and removing all of the necrotic bone. Soft tissue to the area also appeared somewhat necrotic. This was debrided using hand instrumentation. Once the remaining necrotic tissue was debrided, the surgical site was irrigated, then inspection made for any remaining necrotic tissue and none was found. The surgical site then closed using a combination of 3-0 nylon monofilament suture and 5-0 nylon monofilament suture. Prior to complete closure, calcium sulfate antibiotic beads containing vancomycin were placed throughout the wound site and then the wound site completely closed. Dressings then applied consisting of Adaptic, Betadine-soaked gauze, dry gauze, Kerlix roll, and Coban. INTRAOPERATIVE COMPLICATIONS: None. ESTIMATED BLOOD LOSS: Less than 5 mL. JOSE C Posey/URI /[id number] Copies: ~ PATIENT NAME: JEF HERMAN LORIN OPERATIVE REPORT DATE OF : 60 REPORT #: [id number] PHYSICIAN: ALEX HERNANDEZ DPM PCP: GEOVANNY SHIELDS MD REPORT IS CONFIDENTIAL AND NOT TO BE RELEASED WITHOUT AUTHORIZATION
[~2021-10-02 05:55] MED LIST changes: +AMOX TR-K CLV1 EAC1 PO; +ANTIBIOTIC OINT28 GM TOP; +BACTRIM DS TAB1 EACH PO; +DICLOFENAC SOD100 G1 TOP; +DOXYCYCLINE HY100 MG PO; +METFORMIN HCL1000 MG PO; +METOPROLOL SUCC50 MG PO; +MUPIROCIN22 GM TOP; +OXYCODONE HCL10 MG PO; +POTASSIUM CHLO10 MEQ PO; +ULTRAM50 MG PO; +XARELTO10 MG PO
[2021-10-02] MEDS ORDERED: CLEOCIN HCL300 MG PO (06:08)
[2021-10-02] MEDS ORDERED: CIPRO500 MG PO (06:08)
--- NOTE | 2021-10-07 14:51 | PATH ---
[facility] [address] [place], [place] [address] Signed SPECIMEN(S): A RIGHT 5TH METATARSAL AND TOE SPECIMEN SOURCE: A. RIGHT 5TH METATARSAL AND TOE CLINICAL HISTORY: Chronic ulcer FINAL PATHOLOGIC DIAGNOSIS: Fifth metatarsal and toe, right, amputation: - Epidermal ulceration with underlying abscess formation and focal acute osteomyelitis. - Unoriented transected segment of bone with acute osteomyelitis. - See comment. COMMENT: The transected segment of bone measuring 2.0 cm in greatest dimension was received unoriented, therefore final margin status cannot be determined. NAL:cml:C2NR MICROSCOPIC EXAMINATION: Histologic sections of all submitted blocks are examined by light microscopy. These findings, together with the gross examination, support the pathologic diagnosis. GROSS DESCRIPTION: The specimen, labeled and designated "Uriah, right fifth digit chronic ulcer," is received in formalin and consists of a transected toe that is 4.5 x 2.0 x 1.5 cm. The skin surfaces are pink-grey. The toenail is present and appears normal. Occurring proximal to the toenail on the superior surface of the toe is a 0.5 x 0.5 cm pink area of discoloration that extends to within 1.0 cm of the distal tip and 2.0 of the proximal bone and soft tissue margin. Marking the superior skin surface, involving the skin margin, is a 0.7 x 0.5 cm grey ulcerated area of discoloration. This area of discoloration does involve the nearest margin upon cut section. The bone and soft tissue margins are inked blue. Sectioning the bone beneath the pink area of discoloration reveals pink-grey slightly softened cut surfaces. Also submitted in the specimen container is a transected segment of bone that PATIENT NAME: JEF HERMAN PATHOLOGY DATE OF : 60 REPORT #: [id number] PHYSICIAN: CHAPISPingMD PATHOLOGY PCP: GEOVANNY SHIELDS MD REPORT IS CONFIDENTIAL AND NOT TO BE RELEASED WITHOUT AUTHORIZATION [facility] [address] [place] [id number] Signed is 2.0 x 1.2 x 0.7 cm. The segment of bone is received unoriented. The specimen is inked black and is sectioned to reveal yellow firm bony cut surfaces throughout. Summary of sections: A1 software sales representative sections superior to inferior of the toe to include bone and the pink area of discoloration for decalcification in Decal Stat. Also submitted in this block is the ulcerated area involving the skin margin. A2 a random full thickness section of the separately submitted segment of bone for decalcification in Decal Stat. [place] (under the direct supervision of a pathologist) The Gross Description was prepared using a voice recognition system. The report was reviewed for accuracy; however, sound-alike word errors, addition and/or deletions may occur. If there is any question about this report, please contact Client Services. PERFORMING LABORATORY: The technical component was performed by [facility] [address] (Framing Machine Tender: Sugar Flores MD; CLIA# [id number]). [facility] [address] [address] (CLIA# [id number]). Diagnostician: Elle Guan MD Pathologist Electronically Signed 10/07/2021 Copies: ~ PATIENT NAME: JEF HERMAN PATHOLOGY DATE OF : 60 REPORT #: [id number] PHYSICIAN: CRESENCIO PATHOLOGY PCP: GEOVANNY SHIELDS MD REPORT IS CONFIDENTIAL AND NOT TO BE RELEASED WITHOUT AUTHORIZATION
== END 2021-10-02 10:20 | disposition home or self-care (01) ==
LOC: DS 05:55
PROVIDERS: ATTEND Podiatrist Foot Surgery
PROC: 0Y6M0Z8 Detachment at Right Foot, Complete 5th Ray, Open Approach (ICD-10-PCS; principal; 2021-10-02 07:00)
DX: E11.621 Type 2 diabetes mellitus with foot ulcer (principal); L97.514 Non-pressure chronic ulcer of other part of right foot with necrosis of bone; E11.69 Type 2 diabetes mellitus with other specified complication; M86.171 Other acute osteomyelitis, right ankle and foot; E11.42 Type 2 diabetes mellitus with diabetic polyneuropathy; Z79.84 Long term (current) use of oral hypoglycemic drugs
CPT/HCPCS: 01480; 73630; C1713; J1100; J1885; J2250; J2405; J2704; J2765; J2795; J3010; J3370; J7121

== ENCOUNTER 2021-12-11 17:03 | Emergency (ER) | payer OTHER, BC ==
[~2021-12-11] VITALS: Ht 182.9 cm; Wt 115.7 kg
--- NOTE | ~2021-12-11 | EKG ---
[facility] [address] [facility] [place], [place] [address] Draft EK completed, results pending confirmation PATIENT NAME: BATSHEVAJEFGINI PADGETT Electrocardiogram DATE OF : 60 PHYSICIAN: PRELIMINARY REPORT #: [id number] REPORT IS CONFIDENTIAL AND NOT TO BE RELEASED WITHOUT AUTHORIZATION
[~2021-12-11 17:03] MED LIST changes: +CIPRO500 MG PO; +CLEOCIN HCL300 MG PO
[2021-12-11] MEDS ORDERED: PREDNISONE20 MG PO (19:23)
== END 2021-12-11 20:30 | disposition home or self-care (01) ==
LOC: ED 17:03
DX: J45.909 Unspecified asthma, uncomplicated (principal); I25.2 Old myocardial infarction; I10 Essential (primary) hypertension; E78.5 Hyperlipidemia, unspecified; Z79.899 Other long term (current) drug therapy; Z79.82 Long term (current) use of aspirin
CPT/HCPCS: 36415; 71045; 80053; 83735; 83880; 84484; 85025; 93005; 93010; 94640; 94664; 96374; 99285-25; J1940; J7512

== ENCOUNTER 2021-12-16 10:43 | Emergency (ER) | payer OTHER, BC ==
[~2021-12-16] VITALS: Ht 182.9 cm; Wt 115.7 kg
[~2021-12-16 10:43] MED LIST changes: +PREDNISONE20 MG PO
--- OUTSIDE RECORDS SUMMARY | 2021-12-16 10:50 | XMS ---
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 Christie has no Care Guidelines for this patient. [place]p[facility] VISIT COUNT (12 MO.) 2 [facility] TOTAL 2 NOTE: Visits indicate total known visits. ED/C VISIT TRACKING (12 MO.) 12/16/2021 10:[address] [facility] [place] TYPE: Emergency COMPLAINT: - BREATHING DIFFICULTY 12/11/2021 17:04 [facility] [place] TYPE: Emergency COMPLAINT: - DIFFICULTY BREATHING DIAGNOSES: - Essential (primary) hypertension - Shortness of breath - Old myocardial infarction - Unspecified asthma, uncomplicated - terminal supervisor (current) use of aspirin - Other termite technician (current) drug therapy - Hyperlipidemia, unspecified INPATIENT VISIT TRACKING (12 MO.) No inpatient visits to display in this time frame [id number]
--- NOTE | 2021-12-16 21:29 | EKG ---
[facility] [address] [facility] [place] [address] Signed Normal sinus rhythm Left axis deviation Minimal voltage criteria for LVH, may be normal variant ( [place] product ) Inferior infarct , age undetermined T wave abnormality, consider lateral ischemia Abnormal ECG When compared with ECG of 11-DEC-2021 17:10, No significant change was found Confirmed by CRISTEL DELACRUZ MD ([id number]) on 12/16/2021 9:29:06 PM Electronically Signed By: CRISTEL DELACRUZ MD 12/16/212128 PATIENT NAME: JEF HERMAN Electrocardiogram DATE OF : 60 PHYSICIAN: CRISTEL DELACRUZ MD REPORT #: [id number] REPORT IS CONFIDENTIAL AND NOT TO BE RELEASED WITHOUT AUTHORIZATION
== END 2021-12-16 14:55 | disposition home or self-care (01) ==
LOC: ED 10:43
DX: R06.02 Shortness of breath (principal); R00.2 Palpitations; I25.2 Old myocardial infarction; I10 Essential (primary) hypertension; E78.5 Hyperlipidemia, unspecified; Z79.52 Long term (current) use of systemic steroids; Z79.899 Other long term (current) drug therapy; Z79.82 Long term (current) use of aspirin
CPT/HCPCS: 36415; 71045; 80053; 83880; 84484; 85025; 93005; 93010; 99285-25

== ENCOUNTER 2022-03-31 07:24 | Emergency (ER) | payer OTHER, BC ==
[~2022-03-31] VITALS: Ht 182.9 cm; Wt 118.4 kg
[2022-03-31] MEDS ORDERED: ONDANSETRON ODT4 MG PO (10:26)
[2022-03-31] MEDS ORDERED: MECLIZINE HCL25 MG PO (10:26)
--- NOTE | 2022-03-31 20:23 | EKG ---
[facility] [address] [facility] [place] [address] Signed Sinus rhythm with frequent premature ventricular complexes Left axis deviation Left ventricular hypertrophy with QRS widening and repolarization abnormality ( R in aVL , Asa product ) Prolonged QT Abnormal ECG No previous ECGs available Confirmed by CRISTEL DELACRUZ MD ([id number]) on 03/31/2022 8:23:48 PM Electronically Signed By: CRISTEL DELACRUZ MD 03/31/222022 PATIENT NAME: JEF HERMAN LORIN Electrocardiogram DATE OF : 60 PHYSICIAN: CRISTEL DELACRUZ MD REPORT #: [id number] REPORT IS CONFIDENTIAL AND NOT TO BE RELEASED WITHOUT AUTHORIZATION
== END 2022-03-31 10:53 | disposition home or self-care (01) ==
LOC: ED 07:24
DX: R07.89 Other chest pain (principal); R42 Dizziness and giddiness; I25.2 Old myocardial infarction; I10 Essential (primary) hypertension; I25.10 Atherosclerotic heart disease of native coronary artery without angina pectoris; E78.5 Hyperlipidemia, unspecified; Z20.822 Contact with and (suspected) exposure to COVID-19; Z79.899 Other long term (current) drug therapy; Z79.82 Long term (current) use of aspirin; Z95.5 Presence of coronary angioplasty implant and graft
CPT/HCPCS: 36415; 70450; 71045; 80053; 83605; 83880; 84484; 85025; 87502; 93005; 93010; 96374; 96375; 99285-25; A9270; C9803; J2405; U0003

== ENCOUNTER 2022-11-21 09:22 | Emergency (ER) | payer OTHER, BC ==
[~2022-11-21] VITALS: Ht 180.3 cm; Wt 115.7 kg
[~2022-11-21 09:22] MED LIST changes: +MECLIZINE HCL25 MG PO; +ONDANSETRON ODT4 MG PO
[2022-11-21] MEDS ORDERED: CLOPIDOGREL75 MG PO (10:01)
[2022-11-21] MEDS ORDERED: CARVEDILOL12.5 MG PO (10:01)
[2022-11-21 11:13] VITALS: BP 150/132
== END 2022-11-21 11:20 | disposition home or self-care (01) ==
LOC: ED 09:22
DX: E11.610 Type 2 diabetes mellitus with diabetic neuropathic arthropathy (principal); I25.2 Old myocardial infarction; I10 Essential (primary) hypertension; E78.5 Hyperlipidemia, unspecified; Z79.899 Other long term (current) drug therapy; Z79.82 Long term (current) use of aspirin
CPT/HCPCS: 73610; 93971; 99284-25

== ENCOUNTER 2024-01-30 00:14 | Inpatient (IN) | payer OTHER ==
[~2024-01-30] VITALS: Ht 180.3 cm; Wt 115.9 kg
[2024-01-30] VITALS (7 sets, daily range): BP systolic 94–113; BP diastolic 50–72
[~2024-01-30 00:14] MED LIST changes: +CARVEDILOL12.5 MG PO; +CLOPIDOGREL75 MG PO
--- OUTSIDE RECORDS SUMMARY | 2024-01-30 00:15 | XMS ---
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 E.D. VISIT COUNT (12 MO.) 1 VERNON Dumont TOTAL 1 NOTE: Visits indicate total known visits. ED/UCC VISIT TRACKING (12 MO.) 01/30/2024 00:14 VERNON Malik OR TYPE: Emergency COMPLAINT: - DIFFICULTY BREATHING INPATIENT VISIT TRACKING (12 MO.) No inpatient visits to display in this time frame [id number]
[2024-01-30] MEDS ORDERED: TRULICITY1.5 MG/0.5 (00:23)
[2024-01-30] MEDS ORDERED: JARDIANCE10 MG PO (00:24)
[2024-01-30] MEDS ORDERED: HYDROCODON-ACE1 EA10 PO (00:24)
[2024-01-30] MEDS ORDERED: TRULICITY3 MG/0.5 M SQ (00:24)
[2024-01-30 00:33] LABS: PH, VENOUS 7.403 (7.31-7.41)
[2024-01-30 00:34] LABS: BASOPHILS 0.4 % (0-2); HEMATOCRIT 37.5 % (35.0-50.0); HEMOGLOBIN 12.2 g/dL (12.0-18.0); LYMPHOCYTES 5.2 % (24-44); MCH 26.5 (27-36); MCHC 32.5 g/dl (30-36); MCV 81.3 fl (81-99); MONOCYTES 5.8 % (0-12); NEUTROPHILS 87.6 % (39-80); PLATELET COUNT 261 K/uL (140-440); RBC 4.61 M/ul (4.3-5.7); RDW 17.1 (10.5-15.0)
[2024-01-30 01:04] LABS: ALBUMIN 2.8 g/dL (3.4-5.0); ALBUMIN/GLOBULIN RATIO 0.6 (1.1-2.4); ANION GAP 15.2 (7-21); BILIRUBIN, TOTAL 0.9 ng/dL (0.2-1.0); BUN/CREATININE RATIO 11.11 (6.0-28.6); CREATININE, SERUM 1.53 mg/dL (0.70-1.30); POTASSIUM 4.2 mmol/L (3.5-5.1); PROTEIN, TOTAL 7.5 g/dL (6.4-8.2)
[2024-01-30 01:43] LABS: INFLUENZA B NAA NEGATIVE (NEGATIVE); RESPIRATORY SYNCYTIAL VIR NAA NEGATIVE (NEGATIVE)
[2024-01-30] MEDS ORDERED: ondansetron HCL 4 MG/2 ML VIAL IV ONE (01:45)
[2024-01-30] MEDS ORDERED: ALBUTEROL/IPRATROPIUM 3 ML NEB INH ONE (02:15)
[2024-01-30] MEDS ORDERED: CEFTRIAXONE/SODIUM CHLORIDE 2 GM/100 ML PIGGYBACK IV ONE (03:00)
[2024-01-30] MEDS ORDERED: ALBUTEROL SULFATE 0.083% 3 ML VIAL INH PRN ×2 (03:00→20:00)
[2024-01-30] MEDS ORDERED: ACETAMINOPHEN 325 MG TAB PO PRN ×2 (03:00→10:15)
[2024-01-30] MEDS ORDERED: HYDROmorphone HCL 1 MG/ML SYR IV PRN (03:00)
[2024-01-30] MEDS ORDERED: ondansetron HCL 4 MG/2 ML VIAL IV PRN (03:00)
[2024-01-30] MEDS ORDERED: FUROSEMIDE 20 MG/2 ML VIAL IV ONE (03:00)
[2024-01-30] MEDS ORDERED: AZITHROMYCIN/DEXTROSE 500 MG/250 ML BAG IV ONE (03:00)
--- NOTE | 2024-01-30 04:20 | NUR ---
PATIENT TO FLOOR ON STRETCHER BY SALES ENGINEER. PATIENT TRANSFERRED FROM STRETCHER TO BED INDEPENDENTLY. TELE #[address]SE OX IN PLACE. VS OBTAINED AND RECORDED. ASSESSMENT COMPLETE. PATIENT REPORTS CHRONIC NUMBNESS IN BLE. EXTERNAL FIXATOR ON LLE. PAITENT GIRLFRIEND IN ROOM. PATIENT ON 2L NC, NOT CHRONICALLY. SCHEDULED IV ABX INFUSING PER ORDER. IV FLUSHES WNL. PATIENT EDCUATED TO CALL LIGHT AND ROOM. PATIENT VERBALIZES UNDERSTANDING. PATIENT GIRLFRIEND WENT BACK HOME FOR THE NIGHT. NO FURTHER NEEDS. CALL LIGHT IN REACH. BED ALARM ON FOR SAFETY.
[2024-01-30 05:17] LABS: BASOPHILS 0.8 % (0-2); EOSINOPHILS 0.7 % (0-6); HEMATOCRIT 34.5 % (35.0-50.0); HEMOGLOBIN 11.2 g/dL (12.0-18.0); LYMPHOCYTES 3.8 % (24-44); MCH 26.7 (27-36); MCHC 32.5 g/dl (30-36); MCV 82.1 fl (81-99); MONOCYTES 6.2 % (0-12); NEUTROPHILS 88.5 % (39-80); PLATELET COUNT 227 K/uL (140-440); RDW 16.9 (10.5-15.0)
[2024-01-30 05:25] LABS: ALBUMIN 2.4 g/dL (3.4-5.0); ALBUMIN/GLOBULIN RATIO 0.56 (1.1-2.4); ANION GAP 13.3 (7-21); BILIRUBIN, TOTAL 0.9 ng/dL (0.2-1.0); BUN/CREATININE RATIO 11.39 (6.0-28.6); CALCIUM 8.5 mg/dL (8.5-10.1); CREATININE, SERUM 1.58 mg/dL (0.70-1.30); MAGNESIUM 1.9 mg/dL (1.8-2.4); POTASSIUM 4.3 mmol/L (3.5-5.1); PROTEIN, TOTAL 6.7 g/dL (6.4-8.2)
--- NOTE | 2024-01-30 05:31 | NUR ---
PATIENT RESTING IN BED WITH EYES CLOSED. RESPIRATIONS EVEN AND UNLABORED. CALL LIGHT IN REACH.
--- NOTE | 2024-01-30 07:11 | NUR ---
REPORT RECEIVED FROM FAST FOOD WORKER RN SAMIR. PATIENT IS LYING IN BED WITH EYES OPEN AND RESPIRATIONS ARE EVEN AND UNLABORED. PATIENT STATED NO FURTHER NEEDS AT THIS TIME. CALL LIGHT AND PERSONAL BELONGINGS ARE WITHIN REACH.
[2024-01-30] MEDS ORDERED: ALBUTEROL/IPRATROPIUM 3 ML NEB INH SCH ×2 (08:00→20:00)
--- NOTE | 2024-01-30 08:45 | NUR ---
PATIENT IS SITTING UPRIGHT IN BED AND COMPLETE WITH BREAKFAST. BREAKFAST TRAY REMOVED AT THIS TIME. PATIENT GIVEN FRESH CUP OF ICE WATER. PATIENT GIRLFRIEND IS SITTING IN THE CHAIR. PATIENT STATED NO FURTHER NEEDS AT THIS TIME. CALL LIGHT AND PERSONAL BELONGINGS ARE WITHIN REACH.
[2024-01-30] MEDS ORDERED: FUROSEMIDE 20 MG/2 ML VIAL IV SCH (09:00)
[2024-01-30] MEDS ORDERED: ENOXAPARIN SODIUM 40 MG/0.4 ML SYR SUB-Q SCH (10:08)
[2024-01-30] MEDS ORDERED: AMLODIPINE BESYLATE 5 MG TAB PO SCH (10:11)
[2024-01-30] MEDS ORDERED: CLOPIDOGREL BISULFATE 75 MG TAB PO SCH (10:12)
[2024-01-30] MEDS ORDERED: ASPIRIN 81 MG TABEC PO SCH (10:12)
[2024-01-30] MEDS ORDERED: carvediloL 6.25 MG TAB PO SCH (10:14)
[2024-01-30] MEDS ORDERED: IBLOOD GLUCOSE TEST STRIP 1 EA TEST XX PRN (10:15)
[2024-01-30] MEDS ORDERED: HYDROCODONE/ACETA 5/325 TAB PO PRN (10:15)
[2024-01-30] MEDS ORDERED: DEXTROSE 50% 50 ML SYR IV PRN ×2 (10:15)
[2024-01-30] MEDS ORDERED: GLUCAGON,HUMAN RECOMBINANT 1 MG/ML VIAL SUB-Q PRN (10:15)
[2024-01-30] MEDS ORDERED: DEXTROSE 5% 1,000 ML IV PRN (10:15)
[2024-01-30] MEDS ORDERED: lisinopriL 20 MG TAB PO SCH (10:16)
--- NOTE | 2024-01-30 10:27 | NUR ---
0900 MEDICATIONS ADMINISTERED PER THE EMAR. FULL ASSESSMENT COMPLETE AND DOCUMENTED IN THE CHART. PATIENT IS ALERT AND ORIENTED TIMES FOUR. CARDIAC WITH NORMAL S1 AND S2 ON AUSCULATION. RADIAL PULSES ARE STRONG BILATERALLY. CAPILLARY REFILL IN THE UPPER EXTREMITIES IS LESS THAN 3 SECONDS BILATERALLY. RIGHT LOWER EXTREMITY IS LESS THAN 3 SECONDS AND THE LEFT LOWER EXTREMITY CAPILLARY REFILL IS GREATER THAN 3 SECONDS. SENSATION INTACT WITH NO COMPLAINTS OF NUMBNESS AND TINGLING. PATIENT IS ON TELEMETRY NUMBER 2 AND HER HR IS 101. PATIENT IS IN SINUS TACHYCARDIA. BOWEL TONES ARE ACTIVE IN ALL FOUR QUADRANTS. IV SITE FLUSHED WITH 10 ML NORMAL SALINE AND IT IS SALINE LOCKED. IV DRESSING IS CLEAN, DRY, AND INTACT. DIMINISHED LUNG SOUNDS IN ALL LUNG ADAME BILATERALLY. L ANKLE WITH AN EXTERNAL FIXATOR NOTED. SKIN WITH A RIGHT KNEE SCAR, BRUISE ON THE RIGHT LATERAL ANKLE, AND A SCAB ON THE RIGHT LATERAL ANKLE. PATIENT STATED NO FURTHER NEEDS AT THIS TIME. CALL LIGHT AND PERSONAL BELONGINGS ARE WITHIN REACH.
--- NOTE | 2024-01-30 11:00 | NUR ---
DR MANNING DID NOT WNAT TO ORDER ANY FUTHER MEDICAITON FOR BREATHING AT THIS TIME HE WANTED TO REEVALUATE FIRST
[2024-01-30] MEDS ORDERED: CARVEDILOL25 MG PO (11:55)
[2024-01-30] MEDS ORDERED: TORSEMIDE10 MG PO (11:57)
[2024-01-30] MEDS ORDERED: GABAPENTIN100 MG PO (11:57)
--- NOTE | 2024-01-30 11:57 | NUR ---
DR MANNING NOTIFIED OF PT'S BLOOD GLUCOSE OF 394.
[2024-01-30] MEDS ORDERED: POTASSIUM CHLO10 ME1 PO (12:00)
[2024-01-30] MEDS ORDERED: PHARMACY RENAL DOSE ADJUSTMENT 1 DOSE MISC PO SCH (12:00)
[2024-01-30] MEDS ORDERED: IBLOOD GLUCOSE TEST STRIP 1 EA TEST VI SCH (12:00)
[2024-01-30] MEDS ORDERED: INSULIN LISPRO 100 UNIT/ML ML SUB-Q SCH (12:00)
--- NOTE | 2024-01-30 13:48 | NUR ---
PATIENT IS LYING IN BED WITH HIS GIRLFRIEND AT THE BEDSIDE. PATIENT STATED ONLY HAVING "SOME SHARP PAINS RANDOMLY IN THE FOOT". PATIENT WITH NO CPOX AT THE BEDSIDE. RT COMPLETE WITH BREATHING TREATMENT. PATIENT STATED NO FURTHER NEEDS AT THIS TIME. CALL LIGHT AND PERSONAL BELONGINGS ARE WITHIN REACH.
--- NOTE | 2024-01-30 14:10 | NUR ---
PATIENT 1300 LASIX ADMINSITERED PER THE EMAR. VITAL SIGNS TAKEN AND DOCUMENTED IN THE CHART. PATIENT WITH PAIN "SHARP AND THEN IT GOES AWAY". RN OFFERED PAIN MEDICATION AND PATIENT DECLINED. LUNG SOUNDS ARE CLEAR IN THE UPPPER LOBES BILATERALLY WELL THE LEFT LOWER LUNG FIELD. THE RIGHT LOWER LUNG FIELD IS DIMINISHED ON AUSCULTATION. PATIENT IS ON ROOM AIR. CARDIAC WITH NORMAL S1 AND S2 ON AUSCULTATION. PATIENT IS ON TELEMETRY NUMBER 2 AND IS IN SINUS TACHYCARDIA. HR IS 107. IV SITE IN THE LEFT AC FLUSHED WITH 10 ML NORMAL SALINE AND IS NOW SALINE LOCKED. IV DRESSING IS CLEAN, DRY, AND INTACT. PATIENT WITH THE LEFT EXTERNAL FIXATOR IN PLACE. DRY DRAINAGE NOTED ON THE DRESSING. PATIENT STATED NO FURTHER NEEDS AT THIS TIME. CALL LIGHT AND PERSONAL BELONGINGS ARE WITHIN REACH.
--- NOTE | 2024-01-30 15:59 | NUR ---
PATIENT IN BED AT THIS TIME. CALL LIGHT WITHIN REACH, NO FURTHER NEEDS AT THIS TIME.
--- NOTE | 2024-01-30 16:05 | NUR ---
PATIENT IS LYING IN BED WITH THE HOB ELEVATED. PATIENT WITH EYES CLOSED AND RESPIRATIONS ARE EVEN AND UNLABORED. PATIENT IS ON ROOM AIR. CALL LIGHT AND PERSONAL BELONGINGS ARE WITHIN REACH.
--- NOTE | 2024-01-30 19:31 | NUR ---
REPORT RECEIVED FROM DAY SHIFT RN. PT LYING IN BED RESTING WITH EYES CLOSED. RESPIRATIONS EVEN. WHITE BOARD UPDATED. CALL LIGHT IN REACH.
[2024-01-30] MEDS ORDERED: INSULIN GLARGINE-YFGN 100 UNIT/ML ML SUB-Q SCH (21:05)
--- NOTE | 2024-01-30 21:05 | NUR ---
Provided Pt with fresh ice water and quiet pack. No other needs expressed by Pt. Call light left in reach.
--- NOTE | 2024-01-30 21:48 | NUR ---
EVENING ASSESSMENT COMPLETE. SCHEDULED MEDS ADMIN PER EMAR. NOTIFIED OF PT BP. TELEPHONE ORDERS RECEIVED VERIFIED WITH READBACK METHOD TO HOLD CARVEDILOL AT THIS TIME. PT DENIES PAIN OR NAUSEA. DENIES SOB. 2L/NC IN PLACE. SpO2 MID 90'S. TELE #[address] SR. HR 90'S. LLE ELEVATED ON PILLOW. EXTERNAL FIXATOR IN PLACE. CMS INTACT. PT DENIES QUESTIONS OR CONCERNS. CALL LIGHT IN REACH.
--- NOTE | 2024-01-30 22:08 | EKG ---
[facility] [address] [facility] [place] [address] Signed Sinus tachycardia Left axis deviation Incomplete right bundle branch block Nonspecific ST and T wave abnormality Abnormal ECG When compared with ECG of 31-MAR-2022 07:22, premature ventricular complexes are no longer present Confirmed by Chandra Castro MD () on 01/30/2024 10:07:48 PM Electronically Signed By: CHANDRA CASTRO MD 01/30/24 2208 PATIENT NAME: JEF HERMAN Electrocardiogram DATE OF : 60 PHYSICIAN: CHANDRA CASTRO MD REPORT #: [id number] REPORT IS CONFIDENTIAL AND NOT TO BE RELEASED WITHOUT AUTHORIZATION
[2024-01-31] VITALS (10 sets, daily range): BP systolic 99–120; BP diastolic 49–65
--- NOTE | 2024-01-31 00:26 | NUR ---
PT RESTING IN BED ON LEFT SIDE WITH EYES CLOSED. RESPIRATIONS EVEN. SpO2 94% ON 2L/NC.
--- NOTE | 2024-01-31 01:32 | NUR ---
CPOX ALARMING. ISSUE RESOLVED. PT UP TO BR TO VOID 250 ML CONCENTRATED URINE WITH SBA. GAIT UNSTEADY. PT UNABLE TO REMAIN NON WEIGHT BEARING LLE AND REFUSING TO USE CRUTCHES TO GET INTO BATHROOM. PT AGREEABLE TO TRY TO USE CRUTCHES TO GET BACK TO BED. PT GAIT REMAINS WEAK AND UNSTEADY. PT TRANSFERRED BACK TO BED WITH WHEELCHAIR AND 2PA. CLEAN GOWN AND BRIEF PROVIDED. PT DENIES SOB WITH ACTIVITY. SpO2 LOW 90'S WITH 2L/NC IN PLACE. PT DENIES FURTHER NEEDS. BED ALARM FOR SAFETY. CALL LIGHT IN REACH.
--- NOTE | 2024-01-31 01:35 | NUR ---
Assisted RN and Pt with using the bathroom 2PA FWW. Assisted Pt in changing clothes and brief. Call light left in reach. No other needs expressed by Pt. Bed alarm set.
--- NOTE | 2024-01-31 02:12 | NUR ---
CPOX ALARMING. SpO2 83% WITH 2L/NC IN PLACE. PT MOSTLY MOUTH BREATHING WITH OCCASIONAL SNORE. PT AWAKENS EASILY 3L/OXYMASK PLACED. SpO2 93% AFTER PT DOZING OFF.
--- NOTE | 2024-01-31 03:15 | NUR ---
ASSISTED PT TO REPOSITION TO LEFT SIDE. TELE LEADS REPLACED. SpO2 LOW 90'S WITH 3L/OM. NO FURTHER NEEDS.
--- NOTE | 2024-01-31 04:11 | NUR ---
PT RESTING IN BED WITH EYES CLOSED. RESPIRATIONS EVEN. CALL LIGHT IN REACH.
[2024-01-31 05:11] LABS: BASOPHILS 0.9 % (0-2); EOSINOPHILS 0.4 % (0-6); HEMATOCRIT 31.9 % (35.0-50.0); HEMOGLOBIN 10.3 g/dL (12.0-18.0); LYMPHOCYTES 5.8 % (24-44); MCHC 32.3 g/dl (30-36); MCV 80.6 fl (81-99); MONOCYTES 9.3 % (0-12); NEUTROPHILS 83.6 % (39-80); PLATELET COUNT 246 K/uL (140-440); RBC 3.95 M/ul (4.3-5.7)
--- NOTE | 2024-01-31 05:24 | NUR ---
LAB IN ROOM FOR MORNING DRAW. VS OBTAINED. SpO2 94% WITH 3L/OM IN PLACE. OXYGEN TITRATED TO 2L/OM. PT DOZING ON AND OFF. SpO2 REMAINS >90%.
[2024-01-31 05:36] LABS: ALBUMIN 2.2 g/dL (3.4-5.0); ALBUMIN/GLOBULIN RATIO 0.49 (1.1-2.4); ANION GAP 11.9 (7-21); BILIRUBIN, TOTAL 0.6 ng/dL (0.2-1.0); BUN/CREATININE RATIO 12.83 (6.0-28.6); CALCIUM 8.8 mg/dL (8.5-10.1); CREATININE, SERUM 2.26 mg/dL (0.70-1.30); MAGNESIUM 1.9 mg/dL (1.8-2.4); POTASSIUM 3.9 mmol/L (3.5-5.1); PROTEIN, TOTAL 6.7 g/dL (6.4-8.2)
--- NOTE | 2024-01-31 06:22 | NUR ---
Assisted Pt SBA with FWW in place in case to sit on edge of bed and use urinal. Pt states he has the urge to urinate, but cannot urinate more than a few drops. Assisted Pt back to bed. Call light left in reach. Bed alarm set. No other needs expressed by Pt.
--- NOTE | 2024-01-31 06:37 | NUR ---
PT VOID A SMALL UNMEASUREABLE AMOUNT. PT DOES NOT FEEL THE URGE TO VOID MORE. BLADDER SCANNED FOR 210 ML. PO INTAKE ENCOURAGED. DAILY WEIGHT OBTAINED. BED ALARM FOR SAFETY. CALL LIGHT IN REACH.
--- NOTE | 2024-01-31 07:31 | NUR ---
REPORT FROM BEATRICE CARTER.
[2024-01-31] MEDS ORDERED: BUDESONIDE 0.5 MG/2 ML VIAL INH SCH (08:00)
--- NOTE | 2024-01-31 08:09 | NUR ---
MORNING ASSESSMENT IS COMPLETE, PATIENT DENIES PAIN OR NAUSEA. PATIENT IS SITTING UP IN BED TO EAT BREAKFAST. EXTERNAL FIXATOR PRESENT TO LLE. PATIENT KNOWS HE IS NOT TO BE WEIGHT BEARING ON THIS EXTREMITY, PER POST OP INSTRUCTIONS. PATIENT INDICATED THAT HE DOES PUT WEIGHT ON IT SOMETIMES. PATIENT IS ON ROOM AIR, ENCOURAGED TO TAKE DEEP BREATHS, SATS BETWEEN 89 AND 93% ON ROOM AIR. BG IS 223 THIS MORNING AND 3UNITS OF INSULIN SQ TO LEFT ARM.
[2024-01-31] MEDS ORDERED: AZITHROMYCIN 500 MG in DEXTROSE 5% 250 ML IV SCH (09:00)
[2024-01-31] MEDS ORDERED: CEFTRIAXONE/SODIUM CHLORIDE 1 GM/100 ML PIGGYBACK IV SCH (09:00)
--- NOTE | 2024-01-31 11:16 | NUR ---
PATIENT IS RESTING IN BED, NO NEEDS AT THIS TIME. WOUND NURSE IN TO CONSULT AND FEELS THAT IS MORE APPROPRIATE TO HAVE ORTHO CONSULT.
--- NOTE | 2024-01-31 11:28 | NUR ---
PATIENT TO HAVE X-RAY LEFT ANKLE.
--- NOTE | 2024-01-31 13:50 | NUR ---
PATIENT IS SITTING UPRIGHT IN BED AND WATCHING TV. PATIENT WITH 2L NC ON AND THE CPOX AT THE BEDSIDE. PATIENT LUNCH TRAY REMOVED FROM THE ROOM. PATIENT STATED NO FURTHER NEEDS AT THIS TIME. CALL LIGHT AND PERSONAL BELONGINGS ARE WITHIN REACH.
[2024-01-31] MEDS ORDERED: SODIUM CHLORIDE 0.9% 1,000 ML IV SCH (14:00)
--- NOTE | 2024-01-31 14:30 | NUR ---
PATIENT IS LYING IN BED AND HIS GIRLFRIEND IS AT THE BEDSIDE. PATIENT WITH NO COMPLAINTS OF PAIN OR NUMBNESS AND TINGLING. IV SITE FLUSHED WITH 10 ML NORMAL SALINE AND THE IV IS SALINE LOCKED. IV DRESSING IS CLEAN, DRY, AND INTACT. LUNG SOUNDS ARE CLEAR IN ALL LUNG ADAME BILATERALLY. PATIENT WITH NON-PRODUCTIVE COUGH. PATIENT IS 2 L NC AND THE CPOX IS AT THE BEDSIDE. WOUND CARE COMPLETE WITH BEATRICE ARREDONDO. PICTURES ARE IN THE CHART. PICTURE CONSENT SIGNED. RIGHT LATERAL ANKLE- MILVIA AND SUTURES NOTED WITH THE INCISION . PURULENT DRAINAGE NOTED THAT IS FOUL SMELLING. REFER TO PICTURE IN THE CHART. RIGHT LATERAL WIRE PIN SITES- TWO INSERTION SITES NOTED. PURULENT DRAINAGE NOTED. FOUL ODOR SMELLED. REFER TO PICTURE IN THE CHART. TOP PIN SITE- SCAB NOTED AROUND THE INSERTION SITE. REDNESS NOTED AROUND THE SCAB. NO DRAINAGE NOTED. PIN IS NOT ATTACHED TO THE EXTERNAL FIXATOR. PATIENT WITH TOOLS AT THE BEDSIDE DUE TO "TIGHTENING AND RE-ATTATCHING AT HOME". REFER TO PICTURE IN THE CHART. LOWER PIN SITE ON THE HILLMAN- LARGE AMOUNT OF DRIED BLOOD NOTED ON THE DRESSING UPON REMOVAL. INSERTION SITE OF THE PIN WITH SEROUSANGUINOUS DRAINAGE NOTED. PIN SITE NOT STABILIZED WITH THE EXTERNAL FIXATOR. SKIN AROUND THE INSERTION SITE IS PINK/RED. DRIED BLOOD NOTED ON THE SKIN. FOUL SMELLING ODOR PRESENT. REFER TO PICTURES IN THE CHART. ENLARGED PIN SITE NOTED. TOP FOOT RIGHT AND LEFT WIRE PIN SITES- PURULENT AND FOUL SMELLING ODOR PRESENT. DRIED DRAINAGE NOTED. REFER TO PICTURES IN THE CHART. DRESSING CHANGE COMPLETE AND PATIENT TOLERATED WELL. DRESSING CLEANED WITH WOUND CLEANSER. TRIPLE ANTIBIOTIC OINTMENT PLACED AROUND ALL THE EXTERNAL FIXATOR INSERTION SITES WELL WHERE THE MILVIA AND SUTURES ARE. XEROFORM PLACED AROUND THE PIN INSERTION SITES WELL THE MILVIA AND SUTURE SITES. ABD PLACED AROUND THE HEEL. CAST PADDING WRAPPED AROUND THE WOUND AND PIN SITES LOOSELY. PATIENT STATED NO FURTHER NEEDS AT THIS TIME. CALL LIGHT AND PERSONAL BELONGINGS ARE WITHIN REACH.
[2024-01-31] MEDS ORDERED: DAPTOmycin 500 MG/10 ML VIAL IV ONE (15:00)
--- NOTE | 2024-01-31 15:31 | NUR ---
PATIENT GIVEN IV DAPTO.
--- NOTE | 2024-01-31 16:45 | NUR ---
SCAB BROKE OPEN ON THE THIRD TOE ON THE RIGHT FOOT. GAUZE WRAPPED AROUND THE SITE AT THIS TIME. PATIENT MENTIONED THAT HE HAS HIT HIS RIGHT FOOT ON THE LEFT ANKLE EXTERNAL FIXATOR. 4TH TOE ON THE RIGHT FOOT WITH A SCAB NOTED. CAPILLARY REFILL IN THAT RIGHT FOOT IS GREATER THAN 3 SECONDS. PATIENT STATED NO FURTHER NEEDS AT THIS TIME. CALL LIGHT AND PERSONAL BELONGINGS ARE WITHIN REACH.
--- NOTE | 2024-01-31 19:35 | NUR ---
REPORT RECEIVED FROM DAY SHIFT RN. PT LYING IN BED ALERT AND ORIENTED. 2PA TO REPOSITION IN BED. LLE ELEVATED ON PILLOW. 2L/NC AND CPOX REPLACED. SpO2 LOW 90'S. PT DENIES NEEDS. WHITE BOARD UPDATED. CALL LIGHT IN REACH.
--- NOTE | 2024-01-31 21:17 | NUR ---
BED ALARM SOUNDING. ASSISTED PT TO SIDE OF BED TO USE URINAL. BACK TO BED. EVENING ASSESSMENT COMPLETE. SCHEDULED MEDS ADMIN PER EMAR. PT DENIES PAIN OR NAUSEA. DENIES SOB. SpO2 LOW 90'S WITH 2L/NC IN PLACE. LUNGS CLEAR THROUGHOUT. IV IN LEFT AC LEAKING. DC'D WNL. TIP INTACT. GLASS GLAZIER IN TO ATTEMPT NEW IV AFTER THIS RN WITH TWO UNSUCCESSFUL ATTEMPTS. BED ALARM FOR SAFETY. CALL LIGHT IN REACH.
--- NOTE | 2024-01-31 23:44 | NUR ---
SBA TO STAND AT SIDE OF BED TO USE URINAL TO VOID. BACK TO BED. NO FURTHER NEEDS. BED ALARM FOR SAFETY. CALL LIGHT IN REACH.
--- NOTE | 2024-02-01 01:46 | NUR ---
BED ALARM SOUNDING. PT UP TO BSC WITH 1PA AND FWW TO VOID AND HAVE BM. PT IMPULSIVE WITH DIFFICULTY FOLLOWING DIRECTIONS, BEARING WEIGHT ON LEFT FOOT DESPITE STAFF REMINDER. GAIT UNSTEADY AT TIMES. PT ABLE TO DO OWN KENYATTA CARE. BACK TO BED. LLE ELEVATED ON PILLOWS. NO FURTHER NEEDS. BED ALARM FOR SAFETY. CALL LIGHT IN REACH.
--- NOTE | 2024-02-01 03:15 | NUR ---
CALL LIGHT ANSWERED. PT UP TO SIDE OF BED TO VOID. BACK TO BED, GUS WELL. LLE ELEVATED ON PILLOW. OXYGEN 2L/NC IN PLACE. SpO2 LOW 90'S. NO FURTHER NEEDS. BED ALARM FOR SAFETY.
[2024-02-01 05:29] VITALS: BP 130/72
--- NOTE | 2024-02-01 05:30 | NUR ---
CALL LIGHT ANSWERED. PT UP TO SIDE OF BED TO ATTEMPT TO VOID WITH NO RESULTS. DAILY WEIGHT OBTAINED. PT BACK TO BED. VS AND I&O OBTAINED. PT DENIES PAIN. LLE ELEVATED ON PILLOW. 2L/NC IN PLACE. SpO2 LOW 90'S. HR 100'S. NO FURTHER NEEDS. BED ALARM FOR SAFETY. CALL LIGHT IN REACH.
[2024-02-01 05:39] LABS: BASOPHILS 0.1 % (0-2); EOSINOPHILS 0.3 % (0-6); HEMATOCRIT 31.8 % (35.0-50.0); HEMOGLOBIN 10.2 g/dL (12.0-18.0); LYMPHOCYTES 4.8 % (24-44); MCH 26.2 (27-36); MCHC 32.2 g/dl (30-36); MCV 81.4 fl (81-99); MONOCYTES 11.2 % (0-12); NEUTROPHILS 83.6 % (39-80); PLATELET COUNT 260 K/uL (140-440); RBC 3.91 M/ul (4.3-5.7)
--- NOTE | 2024-02-01 05:45 | NUR ---
PATIENT CALLED TO USE THE BEDSIDE COMMODE. 1 PA WITH FWW. PATIENT ABLE SELF KENYATTA CARE. PATIENT IS BACK IN BED. PATIENT VOIDED 200ML YELLOW URINE AND SMEAR BM. BED ALARM ON FOR SAFETY. NO OTHER NEEDS AT THIS TIME.
[2024-02-01 05:52] LABS: ALBUMIN/GLOBULIN RATIO 0.42 (1.1-2.4); ANION GAP 12.9 (7-21); BILIRUBIN, TOTAL 0.5 ng/dL (0.2-1.0); BUN/CREATININE RATIO 19.59 (6.0-28.6); CALCIUM 9.1 mg/dL (8.5-10.1); CREATININE, SERUM 1.48 mg/dL (0.70-1.30); POTASSIUM 3.9 mmol/L (3.5-5.1); PROTEIN, TOTAL 6.8 g/dL (6.4-8.2)
[2024-02-01 05:57] VITALS: BP 130/72
--- NOTE | 2024-02-01 07:15 | NUR ---
PATIENT IS BACK IN THE CHAIR FROM BEDSIDE COMMODE. CALL LIGHT AND SIDE TABLE WITHIN REACH. CHAIR ALARM ON FOR SAFETY.
--- NOTE | 2024-02-01 07:45 | NUR ---
PT SITTING UP IN THE CHAIR AT THE TIME OF SHIFT EXCHANGE. AGREES HE IS COMFORTABLE AND WITHOUT NEED. FRESH H20 AND CALL LIGHT AT CHAIR SIDE. PT ENCOURAGED TO CONTINUE TO USE TRUMPET AT REGULAR INTERVALS, HE AGREES HE IS PRODUCING A SMALL AMOUNT OF SPUTUM. SATS 96% ON 2 L NC TITRATED TO 1 LPM.
--- NOTE | 2024-02-01 08:14 | NUR ---
PT MOVES TO THE BED EATING BREAKFAST CURRENTLY. HE HAS REMOVED 02 STATING HE CAN'T EAT WHEN WEARING IT. SATS ARE 92%. PT CONTINUES WITH A HACKING COUGH STATES IT IS GIVING HIM A HEADACHE. TYLENOL PROVIDED
[2024-02-01] MEDS ORDERED: TRULICITY1.5 MG/0.5 SUB-Q (09:12)
--- NOTE | 2024-02-01 09:17 | NUR ---
PT CONTINUES ON RA SATS 90%. DC FLIGHT OPERATIONS ENGINEER IN TO SEE PT. VISITOR IS PRESENT NOW PT CONTINUES UP IN BED CALL LIGHT IN REACH
[2024-02-01 09:25] VITALS: BP 106/59
--- NOTE | 2024-02-01 09:32 | NUR ---
SPOKE TO PATIENT ABOUT THE DISCHARGE PLAN. PATIENT PLANS TO GO HOME.PATIENT'S DEMOGRAPHICS ARE CORRECT. PATIENT HAS A SUPPORTIVE GIRLFRIEND AND FRIENDS THAT CAN HELP NEEDED. PATIENT HAS A FIXATION DEVICE ON HIS LEFT FOOT THAT HE USES CRUTCHES TO WALK.PATIENT CAN DO HIS ADLS WITHOUT DIFFICULTY. PATIENT CAN AFFORD HOUSING,FOOD AND UTILITIES. PATIENT HAS BEEN USING OXYGEN 2 LITERS AT REST AND AT EXCERISE WHILE IN HOSPITAL. PATIENT WILL USE [place] IF O2 NEEDED AT HOME.
--- NOTE | 2024-02-01 09:47 | NUR ---
MED REC COMPLETE
[2024-02-01] MEDS ORDERED: GABAPENTIN 100 MG CAP PO SCH (10:12)
[2024-02-01] MEDS ORDERED: PANTOPRAZOLE SODIUM 40 MG TABEC PO SCH (10:13)
--- NOTE | 2024-02-01 10:52 | NUR ---
UR CLINICAL REVIEW: [facility]- MEETS INPT CRITERIA FOR HEART FAILURE AND WOUND AND SKIN CARE COMPLICATIONS [facility] INPT 01/31/24 @ 1641 AUTH PENDING CLINICAL REVIEW. SEND CLINICALS [facility]IA [employer] TODAY. PLAN TO DC TO HOME WHEN STABLE 02/04/24
--- NOTE | 2024-02-01 11:07 | NUR ---
PT TO BSC SBA, CALL LIGHT IN REACH AGREES TO CALL WHEN FINISHED
--- NOTE | 2024-02-01 12:14 | NUR ---
PT RESTING IN BED, COMPLETED NOON DENIES DISCOMFORTS OR NEEDS OF. FRESH H20 TO BEDSIDE CALL LIGHT IN REACH
--- NOTE | 2024-02-01 13:41 | NUR ---
DR VARELA IN TO SEE PT HE IS WORKING ON PT LLE AT THIS TIME
[2024-02-01 14:19] VITALS: BP 117/75
--- NOTE | 2024-02-01 15:39 | NUR ---
DRESSING CHANGED PER DOCTOR ORDERS
[2024-02-01 16:51] VITALS: BP 115/65
--- NOTE | 2024-02-01 17:08 | NUR ---
PT'S DTR BRANDON STOPPED THIS RN IN THE HALLWAY AND STATED THAT SHE DID NOT FEEL THAT HE WAS HANDLING THE NEWS OF POSSIBLE AMPUTATION WELL. SHE ASKED IF I WOULD CALL [facility] TO LET THEM KNOW TO BE AWARE THAT HE WAS FEELING EMOTIONAL. CALLED AND SPOKE WITH DIESEL LOCOMOTIVE ENGINEER MCKENZIE REGARDING CONVERSATION AND SHE SAID IT WOULD BE ADDRESSED ON ADMISSION AND SHE WOULD LET THE RECIEVING RN KNOW. DTR ALSO STATED SHE WOULD GO OVER TOMORROW TO SEE HER FATHER.
--- NOTE | 2024-02-01 17:29 | NUR ---
PT LEAVES VIA EMS TO [facility]
== END 2024-02-01 17:10 | disposition short-term general hospital (02) | DRG 189 ==
LOC: ED 00:14 → MS 00:15
PROVIDERS: Family Medicine; ADMIT Internal Medicine; ATTEND Internal Medicine
DX: J96.01 Acute respiratory failure with hypoxia (principal); M86.8X7 Other osteomyelitis, ankle and foot; E87.1 Hypo-osmolality and hyponatremia; N17.9 Acute kidney failure, unspecified; I50.22 Chronic systolic (congestive) heart failure; E78.5 Hyperlipidemia, unspecified; I11.0 Hypertensive heart disease with heart failure; J44.9 Chronic obstructive pulmonary disease, unspecified; E11.69 Type 2 diabetes mellitus with other specified complication; F17.210 Nicotine dependence, cigarettes, uncomplicated; I25.2 Old myocardial infarction; Z95.5 Presence of coronary angioplasty implant and graft; Z98.890 Other specified postprocedural states; Z79.899 Other long term (current) drug therapy; Z79.82 Long term (current) use of aspirin
CPT/HCPCS: 36415; 71260; 73610; 73630; 80053; 82803; 83036; 83735; 83880; 84484; 85025; 85379; 85651; 86140; 87502; 93005; 93010; 94640; 94668; 94760; 94761; 94762; 96367; 96372; 96375; 96376; 97161; 97530; 99285-25; A9270; G0378; J0456; J0696; J0878; J1650; J1815; J1940; J2405; J7030; J7060; Q9967; U0002

== ENCOUNTER 2024-03-16 15:38 | Emergency (ER) | payer OTHER ==
[~2024-03-16] VITALS: Ht 180.3 cm; Wt 105.8 kg
[~2024-03-16 15:38] MED LIST changes: +GABAPENTIN100 MG PO; +HYDROCODON-ACE1 EA10 PO; +JARDIANCE10 MG PO; +POTASSIUM CHLO10 ME1 PO; +TORSEMIDE10 MG PO; +TRULICITY1.5 MG/0.5; +TRULICITY1.5 MG/0.5 SUB-Q; +TRULICITY3 MG/0.5 M SQ
[2024-03-16] MEDS ORDERED: ASPIRIN81 MG PO (16:00)
[2024-03-16] MEDS ORDERED: PIPERACILLIN/TAZOBACTAM 3.375 GM in DEXTROSE 5% 100 ML IV ONE (16:00)
[2024-03-16] MEDS ORDERED: FARXIGA10 MG PO (16:01)
[2024-03-16] MEDS ORDERED: PROTONIX20 MG PO (16:01)
[2024-03-16] MEDS ORDERED: NEURONTIN100 MG PO (16:02)
[2024-03-16] MEDS ORDERED: NOVOLOG FL100 UNIT/1 SUB-Q (16:02)
[2024-03-16] MEDS ORDERED: CRESTOR40 MG NG (16:03)
[2024-03-16] MEDS ORDERED: REZVOGLAR100 UNIT/1 SQ (16:03)
[2024-03-16] MEDS ORDERED: DEXTROSE 5% 100 ML IV ONE (16:12)
[2024-03-16 16:17] LABS: BASOPHILS 0.3 % (0-2); EOSINOPHILS 1.2 % (0-6); HEMATOCRIT 35.6 % (35.0-50.0); HEMOGLOBIN 11.2 g/dL (12.0-18.0); LYMPHOCYTES 10.5 % (24-44); MCH 26.2 (27-36); MCHC 31.6 g/dl (30-36); MCV 82.9 fl (81-99); MONOCYTES 10.4 % (0-12); NEUTROPHILS 77.6 % (39-80); PLATELET COUNT 228 K/uL (140-440); RBC 4.29 M/ul (4.3-5.7)
[2024-03-16 16:33] LABS: ALBUMIN 2.8 g/dL (3.4-5.0); ALBUMIN/GLOBULIN RATIO 0.62 (1.1-2.4); ANION GAP 11.7 (7-21); BILIRUBIN, TOTAL 0.8 ng/dL (0.2-1.0); BUN/CREATININE RATIO 19.64 (6.0-28.6); CALCIUM 9.3 mg/dL (8.5-10.1); CREATININE, SERUM 1.12 mg/dL (0.70-1.30); POTASSIUM 3.7 mmol/L (3.5-5.1); PROTEIN, TOTAL 7.3 g/dL (6.4-8.2)
[2024-03-16] MEDS ORDERED: CEFTRIAXONE/SODIUM CHLORIDE 2 GM/100 ML PIGGYBACK IV ONE (18:45)
[2024-03-16 18:52] VITALS: BP 125/82
== END 2024-03-16 19:43 | disposition home or self-care (01) ==
LOC: ED 15:38
PROVIDERS: Emergency Medicine
DX: S92.421A Displaced fracture of distal phalanx of right great toe, initial encounter for closed fracture (principal); X58.XXXA Exposure to other specified factors, initial encounter; E11.51 Type 2 diabetes mellitus with diabetic peripheral angiopathy without gangrene; I25.2 Old myocardial infarction; I10 Essential (primary) hypertension; E78.5 Hyperlipidemia, unspecified; Z95.5 Presence of coronary angioplasty implant and graft; Z89.512 Acquired absence of left leg below knee; Z79.01 Long term (current) use of anticoagulants; Z79.82 Long term (current) use of aspirin; Z79.4 Long term (current) use of insulin; Z79.85 Long-term (current) use of injectable non-insulin antidiabetic drugs; Z79.899 Other long term (current) drug therapy
CPT/HCPCS: 36415; 73630; 80053; 85025; 87070; 93926; 96365; 96367; 99284-25; J0696; J2543

== ENCOUNTER 2024-11-30 15:40 | Emergency (ER) | payer MEDICARE, OTHER ==
[~2024-11-30] VITALS: Ht 180.3 cm; Wt 110.0 kg
[~2024-11-30 15:40] MED LIST changes: +ASPIRIN81 MG PO; +CRESTOR40 MG PO; +FARXIGA10 MG PO; +INSULIN AS100 UNIT/3 SUB-Q; +INSULIN GL100 UNIT/2 SUB-Q; +LINEZOLID600 MG PO; +NEURONTIN100 MG PO; +NOVOLOG FL100 UNIT/1 SUB-Q; +PROTONIX20 MG PO
[2024-11-30 17:36] LABS: BASOPHILS 0.5 % (0.2-1.2); EOSINOPHILS 1.7 % (0.8-7.0); HEMATOCRIT 43.6 % (40.1-51.0); HEMOGLOBIN 13.7 g/dL (13.7-17.5); LYMPHOCYTES 20.9 % (21.8-53.1); MCHC 31.4 g/dL (32.3-36.5); MCV 82.7 fL (79.0-92.2); MONOCYTES 10.5 % (5.3-12.2); NEUTROPHILS 66.3 % (34.0-67.9); PLATELET COUNT 177 K/uL (163-337); RBC 5.27 M/uL (4.63-6.08)
[2024-11-30 17:52] LABS: ALBUMIN 3.1 g/dL (3.4-5.0); ALBUMIN/GLOBULIN RATIO 0.72 (1.1-2.4); ANION GAP 9.2 (7-21); BILIRUBIN, TOTAL 0.5 mg/dL (0.2-1.0); BUN/CREATININE RATIO 14.54 (6.0-28.6); CALCIUM 9.2 mg/dL (8.5-10.1); CREATININE, SERUM 1.1 mg/dL (0.70-1.30); POTASSIUM 4.2 mmol/L (3.5-5.1); PROTEIN, TOTAL 7.4 g/dL (6.4-8.2)
[2024-11-30 18:39] LABS: ERYTHROCYTE SEDIMENTATION RATE 49
[2024-11-30] MEDS ORDERED: AMOX TR-K CLV1 EAC1 PO (19:15)
[2024-11-30] MEDS ORDERED: AMOXICILLIN/CLAVULANATE K 875 MG TAB PO ONE (19:30)
[2024-11-30 19:48] VITALS: BP 144/81
== END 2024-11-30 19:44 | disposition home or self-care (01) ==
LOC: ED 15:40
PROVIDERS: Emergency Medicine
DX: M86.8X4 Other osteomyelitis, hand (principal); L02.02 Furuncle of face; I25.2 Old myocardial infarction; I10 Essential (primary) hypertension; E78.5 Hyperlipidemia, unspecified; E11.9 Type 2 diabetes mellitus without complications; Z79.82 Long term (current) use of aspirin; Z79.4 Long term (current) use of insulin; Z79.899 Other long term (current) drug therapy; Z88.1 Allergy status to other antibiotic agents
CPT/HCPCS: 36415; 73130; 80053; 83036; 85025; 85651; 86140; 99283

== ENCOUNTER 2024-12-05 16:51 | Inpatient (IN) | payer MEDICARE, OTHER ==
[~2024-12-05] VITALS: Ht 180.3 cm; Wt 111.0 kg
[~2024-12-05 16:51] MED LIST changes: -ASPIRIN81 MG PO; +LO-DOSE ASPIRIN81 MG PO
--- OUTSIDE RECORDS SUMMARY | 2024-12-05 16:58 | XMS ---
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: [facility] PHONE: [phone] TIMO HAR[facility] Emergency [facility] Current PHONE: [phone] JAYLIN ERICKSON [facility] Current PHONE: [phone] Christie has no Care Guidelines for this patient. Arpita VISIT COUNT (12 MO.) 4 VERNON Dumont TOTAL 4 NOTE: Visits indicate total known visits. ED/UCC VISIT TRACKING (12 MO.) 12/05/2024 16:52 VERNON Malik [place] TYPE: Emergency COMPLAINT: - WOUND CHECK 11/30/2024 15:40 VERNON Malik [place] TYPE: Emergency COMPLAINT: - WOUND CHECK DIAGNOSES: - Allergy status to other antibiotic agents - Burn of unspecified degree of single right finger (nail) except thumb, initial encounter - Essential (primary) hypertension - Furuncle of face - Hyperlipidemia, unspecified - intermediate frame tender (current) use of aspirin - intermediate frame tender (current) use of insulin - Old myocardial infarction - Other jail (current) drug therapy - Other osteomyelitis, hand - Type 2 diabetes mellitus without complications 03/16/2024 15:38 VERNON Malik [place] TYPE: Emergency COMPLAINT: - WOUND CHECK DIAGNOSES: - Acquired absence of left leg below knee - Displaced fracture of distal phalanx of right great toe, initial encounter for closed fracture - Essential (primary) hypertension - Exposure to other specified factors, initial encounter - Hyperlipidemia, unspecified - senior living (current) use of anticoagulants - senior living (current) use of aspirin - senior living (current) use of insulin - Long-term (current) use of injectable non-insulin antidiabetic drugs - Old myocardial infarction - Other terminal gauger (current) drug therapy - Presence of coronary angioplasty implant and graft - Type 2 diabetes mellitus with diabetic peripheral angiopathy without gangrene - Unspecified open wound of right great toe without damage to nail, initial encounter 01/30/2024 00:14 VERNON Malik [place] TYPE: Emergency COMPLAINT: - DIFFICULTY BREATHING INPATIENT VISIT TRACKING (12 MO.) 02/01/2024 18:01 [facility] [place] TYPE: Medical Surgical DIAGNOSES: - Charcot's joint, left ankle and foot - Charcot's joint, unspecified ankle and foot - Osteomyelitis, unspecified - Other acute osteomyelitis, left ankle and foot - Valgus deformity, not elsewhere classified, left ankle - POST OP INFECTION 01/31/2024 16:41 VERNON Malik [place] TYPE: Medical Surgical COMPLAINT: - CHF EXAC, PNEUMONIA DIAGNOSES: - Acute kidney failure, unspecified - Acute kidney failure, unspecified - Acute respiratory failure with hypoxia - Chronic obstructive pulmonary disease, unspecified - Chronic obstructive pulmonary disease, unspecified - Chronic systolic (congestive) heart failure - Chronic systolic (congestive) heart failure - Hyperlipidemia, unspecified - Hyperlipidemia, unspecified - Hypertensive heart disease with heart failure - Hypertensive heart disease with heart failure - Hypo-osmolality and hyponatremia - Hypo-osmolality and hyponatremia - senior living (current) use of aspirin - senior living (current) use of aspirin - Nicotine dependence, cigarettes, uncomplicated - Nicotine dependence, cigarettes, uncomplicated - Old myocardial infarction - Old myocardial infarction - Other terminal gauger (current) drug therapy - Other jail (current) drug therapy - Other osteomyelitis, ankle and foot - Other osteomyelitis, ankle and foot - Other specified postprocedural states - Other specified postprocedural states - Presence of coronary angioplasty implant and graft - Presence of coronary angioplasty implant and graft - Type 2 diabetes mellitus with other specified complication - Type 2 diabetes mellitus with other specified complication [id number]
[2024-12-05] MEDS ORDERED: PIPERACILLIN/TAZOBACTAM 4.5 GM in SODIUM CHLORIDE 0.9% 100 ML IV ONE (17:30)
[2024-12-05] MEDS ORDERED: DAPTOmycin 500 MG/10 ML VIAL IV ONE (17:30)
[2024-12-05] MEDS ORDERED: ACETAMINOPHEN 500 MG TAB PO ONE (17:30)
[2024-12-05] MEDS ORDERED: SODIUM CHLORIDE 0.9% 1,000 ML IV ONE (17:30)
[2024-12-05 17:41] LABS: BASOPHILS 0.3 % (0.2-1.2); EOSINOPHILS 0.1 % (0.8-7.0); HEMATOCRIT 39.5 % (40.1-51.0); HEMOGLOBIN 12.6 g/dL (13.7-17.5); LYMPHOCYTES 8.7 % (21.8-53.1); MCH 26.2 PG (25.7-32.2); MCHC 31.9 g/dL (32.3-36.5); MCV 82.1 fL (79.0-92.2); MONOCYTES 10.1 % (5.3-12.2); NEUTROPHILS 80.4 % (34.0-67.9); PLATELET COUNT 241 K/uL (163-337); RBC 4.81 M/uL (4.63-6.08)
[2024-12-05 17:52] LABS: ALBUMIN 2.8 g/dL (3.4-5.0); ALBUMIN/GLOBULIN RATIO 0.56 (1.1-2.4); BILIRUBIN, TOTAL 0.8 mg/dL (0.2-1.0); BUN/CREATININE RATIO 15.9 (6.0-28.6); CALCIUM 9.1 mg/dL (8.5-10.1); CREATININE, SERUM 1.32 mg/dL (0.70-1.30); PROTEIN, TOTAL 7.8 g/dL (6.4-8.2)
[2024-12-05 17:55] LABS: LACTIC ACID, BLOOD 0.9 mmol/L (0.4-2.0)
[2024-12-05] MEDS ORDERED: ondansetron HCL 4 MG/2 ML VIAL IV PRN (19:15)
[2024-12-05] MEDS ORDERED: ACETAMINOPHEN 500 MG TAB PO PRN (19:15)
[2024-12-05] MEDS ORDERED: DEXTROSE 50% 50 ML SYR IV PRN ×2 (19:45)
[2024-12-05] MEDS ORDERED: DEXTROSE 5% 1,000 ML IV PRN (19:45)
[2024-12-05] MEDS ORDERED: IBLOOD GLUCOSE TEST STRIP 1 EA TEST XX PRN (19:45)
[2024-12-05] MEDS ORDERED: GLUCAGON,HUMAN RECOMBINANT 1 MG/ML VIAL SUB-Q PRN (19:45)
[2024-12-05 20:27] VITALS: BP 123/77
[2024-12-05] MEDS ORDERED: IBLOOD GLUCOSE TEST STRIP 1 EA TEST XX SCH (21:00)
[2024-12-05] MEDS ORDERED: INSULIN LISPRO 100 UNIT/ML ML SUB-Q SCH (21:00)
[2024-12-05] MEDS ORDERED: PIPERACILLIN/TAZOBACTAM 4.5 GM in SODIUM CHLORIDE 0.9% 100 ML IV SCH (22:00)
--- NOTE | 2024-12-05 22:39 | NUR ---
PT TO FLOOR APPROX 2029 VIA WC WITH FLOAT RN. PT ALERT AND ORIENTED. PT ABLE TO WALK TO BR TO VOID AND BACK TO BED. VS OBTAINED. RIGHT MIDDLE FINGER REDNESS AND EDEMA NOTED. OPEN AREA NOTED ON DISTAL RIGHT FINGER. RUE ELEVATED ON PILLOWS. PT DENIES PAIN. SCHEDULED MEDS ADMIN PER EMAR. PT ORIENTED TO ROOM AND NURSE CALL LIGHT. PT DENIES QUESTIONS OR CONCERNS. CALL LIGHT IN REACH.
--- NOTE | 2024-12-05 23:29 | NUR ---
PHONED TO CLARIFY ABX ORDER. NEW TELEPHONE ORDERS VERIFIED WITH READBACK METHOD.
[2024-12-06] VITALS (10 sets, daily range): BP systolic 118–142; BP diastolic 65–78
--- NOTE | 2024-12-06 00:01 | NUR ---
IV ABX INFUSING PER ORDER. PT LYING ON RIGHT SIDE WITH RIGHT HAND ELEVATED. NO NEEDS AT THIS TIME. CALL LIGHT IN REACH.
--- NOTE | 2024-12-06 02:24 | NUR ---
PT RESTING WITH EYES CLOSED. AWAKENS EASILY. VS AND I&O OBTAINED. PT DENIES PAIN. RUE ELEVATED ON PILLOW. NO NEEDS AT THIS TIME. CALL LIGHT IN REACH.
--- NOTE | 2024-12-06 04:19 | NUR ---
PT LYING IN BED RESTING WITH EYES CLOSED. RESPIRATIONS EVEN. CALL LIGHT IN REACH.
--- NOTE | 2024-12-06 04:58 | NUR ---
PATIENT IV ABX COMPLETED. IV FLUSHED WITH 10ML OF NS, DRESSING IS INTACT, IV SALINE LOCKED. URINAL EMPTIED AND WRITTEN ON BOARD. FRESH ICE WATER PROVIDED PER PATIENT REQUEST. PATIENT WITHOUT FURTHER NEEDS AT THIS TIME. CALL LIGHT AND PERSONAL BELONGINGS ARE WITHIN REACH.
--- NOTE | 2024-12-06 07:02 | NUR ---
VS AND I&O OBTAINED. ABX INFUSING PER ORDER. RIGHT ARM IN PILLOW SLING PER MD. PT DENIES PAIN. COFFEE PROVIDED. NO FURTHER NEEDS.
--- NOTE | 2024-12-06 07:40 | NUR ---
MORNING REPORT RECIEVED FROM BEATRICE CARTER. PT SITTING UP IN BED WITH RIGHT ARM IN PILLOW CASE SLING, PT HAS URNAL IN REACH AND NO CONCERNS AT THIS TIME, PT HAS CALL LIGHT IN REACH.
[2024-12-06] MEDS ORDERED: ACETAMINOPHEN 325 MG TAB PO PRN (07:45)
[2024-12-06] MEDS ORDERED: ondansetron HCL 4 MG/2 ML VIAL IV PRN (07:45)
[2024-12-06 07:54] LABS: BASOPHILS 0.4 % (0.2-1.2); EOSINOPHILS 0.6 % (0.8-7.0); HEMATOCRIT 37.5 % (40.1-51.0); LYMPHOCYTES 10.6 % (21.8-53.1); MCH 26.4 PG (25.7-32.2); MCV 82.4 fL (79.0-92.2); MONOCYTES 9.2 % (5.3-12.2); NEUTROPHILS 78.9 % (34.0-67.9); PLATELET COUNT 214 K/uL (163-337); RBC 4.55 M/uL (4.63-6.08)
[2024-12-06 08:04] LABS: ANION GAP 13.8 (7-21); BUN/CREATININE RATIO 16.66 (6.0-28.6); CALCIUM 8.8 mg/dL (8.5-10.1); CREATININE, SERUM 1.08 mg/dL (0.70-1.30); POTASSIUM 3.8 mmol/L (3.5-5.1)
--- NOTE | 2024-12-06 08:54 | NUR ---
HOURLY ROUNDING. PATIENT IS SITTING IN RECLINER, SPOUSE AT BEDSIDE. NO REQUEST FROM PATIENT AT THIS TIME
[2024-12-06] MEDS ORDERED: PANTOPRAZOLE SODIUM 40 MG TABEC PO SCH (09:36)
--- NOTE | 2024-12-06 09:41 | NUR ---
UR CLINICAL REVIEW: 2 MN FOR VERSALUS-PER WINE MANAGER MEETS INPT OSTEOMYELITIS OF THE FINGER WITH NEED FOR AMPUTATION MEDICARE INPT 12/06/24 @ 0746 ORDER MATCHES REG NO AUTH REQUIRED PER MEDICARE GUIDELINES DISCHARGE TO HOME WHEN STABLE
--- NOTE | 2024-12-06 11:43 | NUR ---
HOURLY ROUNDING. PATIENT IS SLEEPING IN THE CHAIR. PATIENT IS A STAND BY ASSIST. CALL LIGHT PLACED WITHIN REACH.
[2024-12-06] MEDS ORDERED: PHARMACY RENAL DOSE ADJUSTMENT 1 DOSE MISC PO SCH (12:00)
--- NOTE | 2024-12-06 12:34 | NUR ---
PT SITTING UP IN CHAIR WITH RIGHT ARM IN PILLOW CASE SLING. PT HAS NO PAIN AT THIS TIME AND HAS CALL LIGHT IN REACH.
--- NOTE | 2024-12-06 13:11 | NUR ---
PT SITTING UP IN CHAIR AT THIS TIME, PT CAME TO NURSE STATIONTO ASK ABOUT ORDERING FOOD FOR TOMORROW PT HAS CALL LIGHT IN REACH AND NO CONCERNS AT THIS TIME.
--- NOTE | 2024-12-06 14:26 | NUR ---
MED REC COMPLETE
[2024-12-06] MEDS ORDERED: GABAPENTIN 100 MG CAP PO SCH (15:00)
[2024-12-06] MEDS ORDERED: DAPTOmycin 500 MG/10 ML VIAL IV SCH (16:00)
--- NOTE | 2024-12-06 16:24 | NUR ---
PT SITTING UP IN CHAIR AT THIS TIME, PT HAS NO CONCERNS OTHER THEN WHAT TIME HIS SURGERY WILL BE TOMORROW. PT HAS CALL LIGHT IN REACH AT THIS TIME.
--- NOTE | 2024-12-06 17:30 | NUR ---
PT SITTING UP IN CHAIR AT THIS TIME, PT WAS GIVEN MORE WATER AND UPDATED ON TIME OF SURGERY TOMORROW. PT HAS NO OTHER CONCERNS CALL LIGHT IN REACH.
--- NOTE | 2024-12-06 19:33 | NUR ---
REPORT RECEIVED FROM DAY SHIFT RN. PT SITTING IN RECLINER ALERT AND ORIENTED. DENIES NEEDS. WHITE BOARD UPDATED. CALL LIGHT IN REACH.
[2024-12-06] MEDS ORDERED: PIPERACILLIN/TAZOBACTAM 4.5 GM in SODIUM CHLORIDE 0.9% 100 ML IV SCH (19:45)
--- NOTE | 2024-12-06 20:25 | NUR ---
EVENING ASSESSMENT COMPLETE. SCHEDULED MEDS ADMIN PER EMAR. PT DENIES PAIN OR NAUSEA. RUE IN PILLOW CASE SLING. RIGHT HAND/MIDDLE FINGER REDNESS AND EDEMA NOTED. SCANT AMOUNT BLOODY DRAINAGE NOTED FROM RIGHT MIDDLE FINGER TIP. PT DENIES QUESTIONS OR CONCERNS. CALL LIGHT IN REACH.
--- NOTE | 2024-12-06 23:07 | NUR ---
PT RESTING IN BED WITH EYES CLOSED. RESPIRATIONS EVEN. CALL LIGHT IN REACH.
--- NOTE | 2024-12-06 23:56 | NUR ---
IV PUMP ALARMING. ISSUE RESOLVED. URINAL EMPTIED. PT NPO. VERBALIZES UNDERSTANDING. CLEAN LINENS PROVIDED. NO FURTHER NEEDS.
[2024-12-07] VITALS (14 sets, daily range): BP systolic 124–139; BP diastolic 53–91
--- NOTE | 2024-12-07 01:54 | NUR ---
PT RESTING IN BED WITH EYES CLOSED. RESPIRATIONS EVEN. CALL LIGHT IN REACH.
--- NOTE | 2024-12-07 03:57 | NUR ---
PT LYING ON RIGHT SIDE RESTING WITH EYES CLOSED. RESPIRATIONS EVEN. CALL LIGHT IN REACH.
[2024-12-07 05:40] LABS: BASOPHILS 0.3 % (0.2-1.2); LYMPHOCYTES 11.9 % (21.8-53.1); MCH 25.8 PG (25.7-32.2); MCHC 30.8 g/dL (32.3-36.5); MCV 83.9 fL (79.0-92.2); MONOCYTES 8.8 % (5.3-12.2); NEUTROPHILS 77.7 % (34.0-67.9); PLATELET COUNT 225 K/uL (163-337); RBC 4.65 M/uL (4.63-6.08)
[2024-12-07 05:57] LABS: BUN/CREATININE RATIO 17.47 (6.0-28.6); CALCIUM 8.9 mg/dL (8.5-10.1); CREATININE, SERUM 1.03 mg/dL (0.70-1.30); MAGNESIUM 1.9 mg/dL (1.8-2.4)
[2024-12-07 06:10] LABS: INR 1.27 (0.80-1.30); PROTIME 15.2 Sec (11.2-14.2)
--- NOTE | 2024-12-07 06:10 | NUR ---
LAB IN FOR MORNING DRAW. VS AND I&O OBTAINED. SURGICAL CONSENT SIGNED AND PLACED ON CHART. PT DENIES PAIN. RUE IN PILLOW CASE SLING. PT REMAINS NPO. IV ABX INFUSING WNL. NO NEEDS AT THIS TIME. CALL LIGHT IN REACH.
--- NOTE | 2024-12-07 07:20 | NUR ---
RECIEVED REPORT FROM BEATRICE CARTER. PT LYING IN BED AWAKE, R ARM IN PILLOW SLING. STATES NO PAIN/NAUSEA/SOB AT THIS TIME. PT STATES NO CURRENT NEEDS OR QUESTIONS AT THIS TIME. CALL LIGHT WITHIN REACH.
--- NOTE | 2024-12-07 07:42 | NUR ---
PT USES CALL LIGHT, STATES HE NEEDS TO USE RESTROOM. PT PLACES OWN PROSTHETIC ON INDEPENDENTLY, AMBULATES TO RESTROOM WITH SBA. PT AGREES TO PULL CALL LIGHT WHEN FINISHED. CALL LIGHT WITHIN REACH.
--- NOTE | 2024-12-07 08:10 | NUR ---
DAY SURGERY NURSE TAKES PT DOWN TO DAY SURGERY.
[2024-12-07] MEDS ORDERED: LIDOCAINE HCL 2% 20 MG/ML VIAL INJ ONE (09:20)
[2024-12-07] MEDS ORDERED: dexmedeTOMIDine HCl 200 MCG/2 ML VIAL ONE (09:20)
[2024-12-07] MEDS ORDERED: propofoL 200 MG/20 ML VIAL ONE (09:20)
[2024-12-07] MEDS ORDERED: Ropivacaine HCl 0.5% 30 ML VIAL ONE (09:20)
--- NOTE | 2024-12-07 09:40 | NUR ---
Attempted to see pt and he has gone to surgery.
[2024-12-07] MEDS ORDERED: ondansetron HCL 4 MG/2 ML VIAL IV PRN (10:15)
[2024-12-07] MEDS ORDERED: PROCHLORPERAZINE EDISYLATE 10 MG/2 ML VIAL IV PRN (10:15)
[2024-12-07] MEDS ORDERED: droPERidol 5 MG/2 ML VIAL IV PRN (10:15)
[2024-12-07] MEDS ORDERED: NALOXONE HCL 0.4 MG SYR IV PRN (10:15)
[2024-12-07] MEDS ORDERED: IBLOOD GLUCOSE TEST STRIP 1 EA TEST VI PRN (10:15)
[2024-12-07] MEDS ORDERED: fentaNYL citrate 50 MCG/ML SDV IV PRN (10:15)
--- NOTE | 2024-12-07 10:40 | NUR ---
PT BACK TO [facility] ROOM. REPORT RECIEVED FROM BEATRICE HANSON. PT DENIES PAIN/NAUSEA/SOB. CPOX IN PLACE. RUE IN PILLOW SLING, ICE TO AREA. DRESSING C/D/I BUT FOR SCANT AMOUNT OF SEROSANGUINOUS DRAINAGE BY AMPUTATION SITE. PT STATES NO FURTHER NEEDS AT THSI TIME. SCD IN PLACE ON RLE. CALL LIGHT WITHIN REACH.
[2024-12-07] MEDS ORDERED: HYDROCODONE/ACETA 7.5/325 TAB PO PRN (10:45)
--- NOTE | 2024-12-07 11:29 | NUR ---
VISITED DURING SPIRITUAL CARE ROUNDS. PT SUPPORTED BY SPOUSE IN ROOM. BOTH IN OVERALL GOOD SPIRITS, EXPRESSED RESILIENCE. NO IMMEDIATE NEEDS. FELTMAKER AND WEIGHER PROVIDED SUPPORTIVE PRESENCE, HOSPITALITY, PRAYER.
--- NOTE | 2024-12-07 11:30 | NUR ---
12/07/24 1130 Doreen Soto 1013- PT PRESENTS TO PACU,
--- NOTE | 2024-12-07 11:45 | NUR ---
[facility] PLACE ON BLISTER ON L ARM D/T POSSIBLE MRSA. PT AND FAMILY EDUCATION. PT DENIES PAIN/NAUSEA/SOB AT THIS TIME, TOLERATING FOOD/WATER WELL, DIET ORDER UPDATED MD ORDERED TO ADVANCE TOLERATED. CONTACT PRECAUTIONS IN PLACE D/T POSSIBLE MRSA PER MD. PT CONTINUES TO BE IN PILLOW SLING WITH ICE, CPOX IN PLACE, SCD ON RLE IN PLACE. PT STATES NO NEEDS AT THIS TIME. VSS. CALL LIGHT WITHIN REACH.
[2024-12-07] MEDS ORDERED: INSULIN GLARGINE-YFGN 100 UNIT/ML ML SUB-Q SCH (11:54)
--- NOTE | 2024-12-07 12:05 | NUR ---
PATIENT LAYING IN BED. BG WAS DONE AT 150. PATIENTS CALL LIGHT IN REACH AND NO FURTHER NEEDS AT THIS TIME.
--- NOTE | 2024-12-07 12:20 | NUR ---
REPORT RECEIVED FROM BEATRICE MOLINA AT THIS TIME.
--- NOTE | 2024-12-07 13:50 | NUR ---
PATIENT LAYING IN BED WITH RIGHT ARM ELEVATED IN SLING, FAMILY MEMBER AT BEDSIDE. ASSISTED WITH REPOSITIONING PATIENT IN THE BED AND DID VITAL SIGNS AND I/OS. PATIENT DENIED ANY OTHER NEEDS AT THIE TIME. CALL LIGHT AND PERSONAL BELONINGS IN REACH.
--- NOTE | 2024-12-07 14:21 | NUR ---
PATIENT IS LYING IN BED WITH HOB ELEVATED. PATIENT IS ON ROOM AIR WITH THE CPOX AT BEDSIDE. PATIENT WITH CONCERNS ABOUT HAVING A BOWEL MOVEMENT AT SOME POINT. PATIENT EDUCATED ON USING THE COMMODE OR BEDPAN THE RIGHT ARM IS SUPPOSED TO BE ELEVATED. PATIENT EXPRESSED UNDERSTANDING AND WOULD LIKE TO USE THE COMMODE. PATIENT INSTRUCTED TO CALL WHEN HE IS READY AND THAT WE WILL GET HIM SET UP. PATIENT STATED NO FURTHER NEEDS AT THIS TIME. CALL LIGHT AND PERSONAL BELONGINGS ARE WITHIN REACH.
--- NOTE | 2024-12-07 15:30 | NUR ---
PATIENT IS LYING IN BED WITH HOB ELEVATED. PATIENT WITH EYES OPEN AND RESPIRATIONS ARE EVEN AND UNLABORED. PATIENT IS SITTING IN THE RECLINER AT BEDSIDE. PATIENT IS ALERT AND ORIENTED TIMES FOUR. PATIENT LAST BM WAS 12/07/24. PATIENT RIGHT ARM REMAINS IN THE PILLOW SLING. SCANT AMOUNT OF SEROSANGUINEOUS DRAINAGE NOTED ON THE DRESSING. PATIENT WITH NO COMPLAINTS OF PAIN AT THIS TIME BUT DOES REPORT THAT HE IS STARTING TO FEEL UP TOWARDS HIS WRIST NOW. ALEVYN ON THE LEFT FOREARM REMAINS CLEAN, DRY, AND INTACT. PATIENT IS ON A 60 GRAM CARB DIET WITH ACTIVE BOWEL TONES IN ALL FOUR QUADRANTS. ZOSYN IS INFUSING AT 25 ML/HR. IV SITES BOTH FLUSHED WITH 10 ML NORMAL SALINE. IV DRESSINGS ARE CLEAN, DRY, AND INTACT. PATIENT IS ON ROOM AIR AND LUNG SOUNDS ARE CLEAR THROUGHOUT. CPOX AT THE BEDSIDE. CARDIAC WITH NORMAL S1 AND S2 ON AUSCULTATION. RADIAL AND RIGHT PEDAL PULSE IS STRONG. GENERALIZED EDEMA NOTED TO THE RIGHT HAND, WRIST, AND ARM. CAPILLARY REFILL IN THE BILATERAL UPPER EXTREMITIES AND THE RLE ARE LESS THAN 3 SECONDS. SENSATION INTACT WITH NO COMPLAINTS OF NUMBNESS OR TINGLING. SCATTERED SCARS NOTED. PATIENT AND FAMILY STATED NO FURTHER NEEDS AT THIS TIME. CALL LIGHT AND PERSONAL BELONGINGS ARE WITHIN REACH.
--- NOTE | 2024-12-07 16:44 | NUR ---
PATIENT IS LYING IN BED WITH HOB ELEVATED. PATIENT IS SPEAKING WITH ROGER PAUL. PATIENT REMAINS IN THE ROOM AND SITTING AT BEDSIDE. CALL LIGHT AND PERSONAL BELONGINGS ARE WITHIN REACH.
--- NOTE | 2024-12-07 17:06 | NUR ---
1600 AND 1700 MEDICATIONS ADMINISTERED PER THE EMAR. IV IN THE LAC REMOVED DUE TO LEAKING. PATIENT REMAINS SITTING IN THE RECLINER AT BEDSIDE. VITAL SIGNS TAKEN AND DOCUMENTED IN THE CHART. PATIENT AND FAMILY STATED NO FURTHER NEEDS AT THIS TIME. CALL LIGHT AND PERSONAL BELONGINGS ARE WITHIN REACH.
--- NOTE | 2024-12-07 18:08 | NUR ---
PATIENT IS LYING IN BED WITH HOB ELEVATED. PATIENT RIGHT ARM REMAINS IN THE PILLOW SLING. ROGER PAUL IS IN THE ROOM AT THIS TIME AND SPEAKING WITH THE PATIENT. PATIENT IV ANTIBIOTIC COMPLETE. IV FLUSHED WITH 10 ML NORMAL SALINE AND IS SALINE LOCKED. IV DRESSING IS CLEAN, DRY, AND INTACT. IV PUMP CLEARED OF INTAKE FLUID. PATIENT STATED NO FURTHER NEEDS AT THIS TIME. CALL LIGHT AND PERSONAL BELONGINGS ARE WITHIN REACH.
--- NOTE | 2024-12-07 19:34 | NUR ---
REPORT RECEIVED FROM PEEWEE BARRON. ASSUMED PATIENT CARE AT THIS TIME, PATIENT IS SITTING IN SEMIFOWLERS POSITION, RIGHT ARM IS IN PILLOW CASE SLING. COMFORT BANDAGE OVER RIGHT HAND AND WRIST IS INTACT, AND THERE IS A MINIMAL AMOUNT OF SHADOWING THAT IS DRIED. ASSESSMENT COMPLETED WITH BEATRICE VIDES. NO NEW DRAINAGE IS NOTED. PATIENT REPORTS HE IS GAINING SOME FEELING BACK, ABLE TO FEEL TOUCH BELOW THE BANDAGE TOWARDS THE ELBOW, NUMBNESS REMAINS IN HIS FINGERS. HE DENIES ANY PAIN. RESPIRATIONS ARE EVEN AND UNLABORED. CALL LIGHT IN REACH, ICE PACK IN PLACE.
--- NOTE | 2024-12-07 20:21 | NUR ---
CALLED TO ROOM, ASSISTED PATIENT WITH PUTTING ARM BACK IN ARM SLING. ASSESSMENT COMPLETED, VS OBTAINED AND RECORDED. INTAKE AND OUTPUT DOCUMENTED. CALL LIGHT IN REACH.
--- NOTE | 2024-12-07 21:52 | NUR ---
SCHEDULED MEDICATIONS GIVEN PER ORDER. PATIENT ASSISTED WITH GETTING ARM BACK IN PILLOW SLING. FRESH ICE PACK PLACED OVER SITE. PATIENT DECLINES FURTHER NEEDS, CALL LIGHT IN REACH. CPOX AT BEDSIDE.
--- NOTE | 2024-12-07 23:50 | NUR ---
RN CALLED TO ROOM. CPOX MONITOR SHOWING 70%, PATIENT ON ROOM AIR AND IN DEEP SLEEP. PATIENT WOKE UP, TO RN VERBAL CUE. SPO2 RAPIDLY INCREASED TO 91%. 2L O2 PLACED ON PATIENT NC. PATIENT DENIES HX OF SLEEP APNEA. CPOX MONITOR REMAINING AT BEDSIDE. CALL LIGHT IN REACH. ARM IN PILLOW SLING.
[2024-12-08] VITALS (11 sets, daily range): BP systolic 128–147; BP diastolic 65–82
--- NOTE | 2024-12-08 01:51 | NUR ---
VS OBTAINED AND RECORDED. INTAKE AND OUTPUT DOCUMENTED. PATIENT IV SALINE LOCKED. NO FURTHER NEEDS, CALL LIGHT IN REACH. ARM REMAINS IN PILLOW SLING, ICE OVER SITE.
--- NOTE | 2024-12-08 04:33 | NUR ---
ROUNDED ON PATIENT, PATIENT RESTING WITH EYES CLOSED, RESPIRATIONS EVEN AND UNLABORED. RIGHT ARM REMAINS IN PILLOW SLING. NO NEEDS IDENTIFIED, CALL LIGHT IN REACH.
[2024-12-08 05:33] LABS: BASOPHILS 0.6 % (0.2-1.2); EOSINOPHILS 3.5 % (0.8-7.0); HEMATOCRIT 38.4 % (40.1-51.0); HEMOGLOBIN 12.1 g/dL (13.7-17.5); LYMPHOCYTES 19.1 % (21.8-53.1); MCH 26.4 PG (25.7-32.2); MCHC 31.5 g/dL (32.3-36.5); MCV 83.7 fL (79.0-92.2); MONOCYTES 9.9 % (5.3-12.2); NEUTROPHILS 66.6 % (34.0-67.9); PLATELET COUNT 281 K/uL (163-337); RBC 4.59 M/uL (4.63-6.08)
[2024-12-08 05:44] LABS: ANION GAP 9.9 (7-21); BUN/CREATININE RATIO 16.32 (6.0-28.6); CREATININE, SERUM 0.98 mg/dL (0.70-1.30); POTASSIUM 3.9 mmol/L (3.5-5.1)
--- NOTE | 2024-12-08 06:19 | NUR ---
VS OBTAINED AND RECORDED. NO NEW DRAINAGE NOTED ON DRESSING. PATIENT REQUESTED PRN PAIN MEDICATION FOR 4/10 PAIN IN THE RIGHT HAND. HE NOTES THAT HE IS NO LONGER EXPERIENCING NUMBNESS IN THAT EXTREMITY. PATIENT DENIES FURTHER NEEDS, CALL LIGHT IN REACH.
--- NOTE | 2024-12-08 06:57 | OR ---
[facility] [address] [place], [place] [address] Signed DATE OF OPERATION: 12/07/2024 SURGEON: Mary Renee MD PREOPERATIVE DIAGNOSIS: Osteomyelitis and cellulitis, right middle finger. POSTOPERATIVE DIAGNOSES: 1. Osteomyelitis and cellulitis, right middle finger. 2. Flexor tenosynovitis, acute right middle finger. PROCEDURES PERFORMED: 1. Guillotine amputation, right middle finger, P1. 2. Irrigation and debridement, flexor tendon sheath and mid palmar space. COMMAND AND CONTROL OFFICER: None. ANESTHESIA: MAC. BLOOD LOSS: 50 mL. TOURNIQUET: None. SPECIMENS: Deep cultures were sent to the lab. BRIEF HISTORY: Jorge Luis is a 63-year-old gentleman with severe diabetes and peripheral neuropathy. He burned his finger about three weeks ago that developed into a cellulitis and ultimately which he was admitted with two days ago. Initially, he had some redness on the dorsum of his finger and dorsal hand, however, that had worsened this morning to deep cellulitis and tenderness along the flexor tendon sheath. Risks and benefits of operative treatment were discussed with him and he elected to proceed. DESCRIPTION OF PROCEDURE: Once consent was obtained, he was taken to the operating room. After adequate Electronically Signed By: MARY RENEE MD 12/08/24 0657 PATIENT NAME: JEF HERMAN OPERATIVE REPORT DATE OF : 60 REPORT #: [id number] PHYSICIAN: MARY RENEE MD PCP: TIMO HARVEY MD REPORT IS CONFIDENTIAL AND NOT TO BE RELEASED WITHOUT AUTHORIZATION [facility] [address] [place], [place] [address] Signed anesthesia he was placed on operating room table. A hand table was then placed. The arm was prepped and draped in a standard sterile fashion without tourniquet. The necrotic finger was covered with a glove tip. The circumferential incision was performed in distal P1 carried through skin and subcutaneous tissue and directly down to the bone. The bone was cleared and a microsagittal saw was used to create the osteotomy and the remainder of the flexor tendon was released. There was mild bleeding with no significant bleeding from the arteries on either side. On examination, the flexor tendon sheath was filled with purulent material and was expressible from proximal along the flexor tendon sheath. We then made a 2 cm incision in the distal palmar crease and carried this down to the flexor tendon at the A1 clemnetine. The A1 clementine was released and the flexor tendon sheath was opened, which allowed escape of more purulent material. This was copiously irrigated with normal saline using a 14-gauge catheter both up and down the tendon sheath and in the mid palmar space. The fluid was clear by the time we were done irrigating. Both the mid palmar incision and the amputation site were left open. They were both cleaned and any bleeders in the distal finger were cauterized. He was then dressed with Adaptic and a bulky hand dressing. He was awakened and taken to the recovery room in satisfactory condition. All sponge, needle, and instrument counts were correct. Mary Renee MD BA/MODL /[id number] Copies: ~ Electronically Signed By: MARY RENEE MD 12/08/24 0657 PATIENT NAME: JEF HERMAN OPERATIVE REPORT DATE OF : 60 REPORT #: [id number] PHYSICIAN: MARY RENEE MD PCP: TIMO HARVEY MD REPORT IS CONFIDENTIAL AND NOT TO BE RELEASED WITHOUT AUTHORIZATION
--- NOTE | 2024-12-08 07:15 | NUR ---
RECIEVED REPORT FROM BEATRICE ALEXANDER.
--- NOTE | 2024-12-08 07:40 | NUR ---
PT LYING IN BED AWAKE, STATES PAIN HAS INCREASED MINIMALLY THIS MORNING. PT STATES NO NAUSEA OR SOB. PT EDUCATION ON DEEP BREATHING FINE CRACKLES PRESENT IN LLL. PT STATES NO CURRENT NEEDS. R ARM REMAINS IN PILLOW SLING, NO NEW DRAINAGE, ICE PACK IN PLACE ON RUE. PT REMAINS ON CPOX. ALLEVYN REMAINS ON LUE TO COVER BLISTER. CALL LIGHT WITHIN REACH.
--- NOTE | 2024-12-08 09:28 | NUR ---
PT UP TO RESTROOM, HAS ONE BM, NEEDS ASSISTANCE IN WIPING SELF AFTER BM, ASSISTANCE PROVIDED. PT UP TO CHAIR, RUE IN PILLOW SLING, NEW ICE PACK IN PLACE. PT STATES NO CURRENT NEEDS. PT TAKES PO MEDICATION W/O DIFFICULTY. CALL LIGHTI WITHIN REACH.
--- NOTE | 2024-12-08 09:49 | NUR ---
PATIENT WAS IN BED AT THIS TIME, I ASSISTED PATIENT WITH PUTTING HIS PROTHSTETIC ON, AND TO THE RESTROOM. CHANGED HIS LINENS AND CLEANED UP HIS ROOM, TOLD HIM TO CALL WHEN HE WAS DONE IN THE RESTROOM. CALL LIGHT WITH IN REACH AND NOTHING ELSE NEEDED AT THIS TIME.
--- NOTE | 2024-12-08 10:00 | NUR ---
Spoke with Dontae. States he is doing well, denies any needs. He is watching TV and videos on his phone. Cont. to plan to dc when medically cleared in a few days. Pt is scheduled for an I&D with washout in surgery tomorrow.
--- NOTE | 2024-12-08 10:39 | NUR ---
SBA TO THE BATHROOM. BED LINENS CHANGED. PATIENT REPORTED PAIN, BEATRICE MOLINA NOTIFIED.
--- NOTE | 2024-12-08 11:36 | NUR ---
OT AT THE BEDSIDE.
--- NOTE | 2024-12-08 14:48 | NUR ---
PT UP TO SHOWER WITH CLUTCH MECHANIC ASSIST, CALL LIGHT WITHIN REACH.
--- NOTE | 2024-12-08 16:20 | NUR ---
PATIENT IN CHAIR AT THIS TIME. THIS DATA ANALYTICS ARCHITECT ASSISTED PATIENT IN A SHOWER. CALL LIGHT WITHIN REACH, NO FURTHER NEEDS
--- NOTE | 2024-12-08 16:54 | NUR ---
MEDICATION ADMINISTERED FOR BEATRICE MOLINA. PATIENT IS RESTING IN RECLINER WITH RLE AND LEFT STUMP ELEVATED. IV TO PATIENT'S LEFT FOREARM FLUSHES WNL AND HAS BRISK BLOOD RETURN. PATIENT ALSO RECEIVES NEW WRIST BANG AND ALLERGY BAND. PATIENT CONVERSING PLEASANTLY, NO REQUESTS. CALL LIGHT AND PERSONAL BELONGINGS IN REACH.
--- NOTE | 2024-12-08 17:05 | NUR ---
PT UP TO CHAIR, ASSISTANCE WITH SETTING UP DINNER TRAY GIVEN. PT STATES NO CURRENT NEEDS, CALL LIGHT WITHIN REACH.
--- NOTE | 2024-12-08 19:25 | NUR ---
RECEIVED REPORT FROM BEATRICE MOLINA. PT ALERT IN CHAIR, WATCHING TV. NO NEEDS PRESENTLY. CALL LIGHT INREACH
--- NOTE | 2024-12-08 20:23 | NUR ---
VITALS, ASSESSMENT. ASSISTED PT FROM CHAIR TO BED. NO OTHER NEEDS PRESENTLY, CALL LIGHT IN REACH
--- NOTE | 2024-12-08 23:09 | NUR ---
EVENING ANTIBIOTIC. REFILLED ICE PACK IN PILLOW SLING AND ASSISTED IN POSITIONING IN BED. GIVEN PRN NORCO FOR 5/10 PAIN. GIVEN 3 UNITS INSULIN FOR BG OF 206. NO OTHER NEEDS, CALL LIGHT IN REACH
[2024-12-09] VITALS (11 sets, daily range): BP systolic 114–153; BP diastolic 80–93
[2024-12-09] MEDS ORDERED: LACTATED RINGER'S 1,000 ML IV SCH
--- NOTE | 2024-12-09 00:03 | NUR ---
PT NPO, REMOVED FLUIDS FROM TABLE. PT ALERT IN ROOM, NO NEEDS FOR NOW. CALL LIGHT IN REACH
--- NOTE | 2024-12-09 01:58 | NUR ---
RESPONDED TO BEEPING CPOX. PT SPO2 AT 88%, APPLIED 1LNC. NO NEESD, CALL LIGHT IN REACH
--- NOTE | 2024-12-09 02:50 | NUR ---
DISCONNECTED ABX, STARTED IV FLUIDS. NO OTHER NEEDS, CALL LIGHT IN REACH
--- NOTE | 2024-12-09 04:33 | NUR ---
RESPONDED TO BEEPING IV, RESTARTED AFTER OCCLUSION. PT ALERT, NO NEEDS PRESENTLY. CALL LIGHT IN REACH
[2024-12-09 05:27] LABS: BASOPHILS 0.7 % (0.2-1.2); EOSINOPHILS 5.8 % (0.8-7.0); HEMATOCRIT 39.7 % (40.1-51.0); HEMOGLOBIN 12.3 g/dL (13.7-17.5); LYMPHOCYTES 28.8 % (21.8-53.1); MCH 25.8 PG (25.7-32.2); MCV 83.2 fL (79.0-92.2); MONOCYTES 8.9 % (5.3-12.2); NEUTROPHILS 55.8 % (34.0-67.9); PLATELET COUNT 260 K/uL (163-337); RBC 4.77 M/uL (4.63-6.08)
[2024-12-09 05:41] LABS: ANION GAP 10.7 (7-21); BUN/CREATININE RATIO 14.43 (6.0-28.6); CALCIUM 8.5 mg/dL (8.5-10.1); CREATININE, SERUM 0.97 mg/dL (0.70-1.30); MAGNESIUM 1.9 mg/dL (1.8-2.4); POTASSIUM 3.7 mmol/L (3.5-5.1)
--- NOTE | 2024-12-09 06:19 | NUR ---
VITALS, AM MEDS. PARTIALLY COMPLETED PRE-OP CHECKLIST. GIVEN PRN NORCO FOR 5/10 ARM PAIN. NO OTHER NEEDS, CALL LIGHT IN REACH
--- NOTE | 2024-12-09 07:18 | NUR ---
REPORT RECEIVED FROM BEATRICE MENDEZ. PATIENT IS IN RECLINER SEARCHING FOR HIS CELL PHONE. THIS RN ASSISTS IN LOCATING IT. PATIENT REPORTS FEELING EXCITED FOR SURGERY AND HAS NO REQUESTS. DIETARY NOTIFIED OF PATIENT'S TIME CHANGE FOR SURGERY, THIS RN REQUESTS LUNCH TRAY STILL BE DELIVERED AND HELD IN PATIENT'S ROOM, DIETARY AGREEABLE. PATIENT HAS CALL LIGHT AND PERSONAL BELONGINGS IN REACH.
--- NOTE | 2024-12-09 07:53 | NUR ---
DAY SURGERY NOTIFIED OF PATIENT'S ORAL MEDICATIONS THIS MORNING AND AM [facility] WITH BLOOD GLUCOSE OF 129. DAY SURGERY REPORTS THEY WILL SEE IF AVERY IS AVAILABLE TO ASK AND RETURN THIS RN'S CALL.
--- NOTE | 2024-12-09 08:36 | NUR ---
GOLDIE FROM SURGERY TAKES PATIENT OFF THE FLOOR AT THIS TIME.
--- NOTE | 2024-12-09 08:37 | NUR ---
SURGERY TOOK PATIENT BACK AT 0835. BEATRICE JIMENEZ NOTIFIED. ROOM WAS CLEANED AND REORGAINZED BY THIS MOTOR ASSEMBLY SUPERVISOR.
--- NOTE | 2024-12-09 09:30 | NUR ---
Pt is gone to surgery. SO in room and denies needs.
[2024-12-09] MEDS ORDERED: fentaNYL citrate 100 MCG/2 ML VIAL ONE (09:32)
[2024-12-09] MEDS ORDERED: propofoL 200 MG/20 ML VIAL ONE (09:33)
[2024-12-09] MEDS ORDERED: ondansetron HCL 4 MG/2 ML VIAL ONE (09:33)
--- NOTE | 2024-12-09 09:47 | NUR ---
PATIENT REMAINS OFF THE FLOOR AT THIS TIME.
--- NOTE | 2024-12-09 10:23 | NUR ---
12/09/24 1023 Celi Renee 1015 PT TO PACU WAKE AND ALERT O2 CHANGED TO NC AT 3L. PT DENIES PAIN AND NAUSEA. PT ABLE TO MOVE REMAINING FINGER ON RT HAND.
--- NOTE | 2024-12-09 10:34 | NUR ---
PATIENT REMAINS OFF THE FLOOR AT THIS TIME.
--- NOTE | 2024-12-09 11:05 | NUR ---
PATIENT ARRIVES BACK TO FLOOR IN HOSPITAL BED ESCORTED BY PACU NURSE. REPORT RECEIVED. PATIENT IS ALERT AND ORIENTED, CONVERSING WITH THIS RN. PATIENT REPORTS NO PAIN AT THIS TIME, MILD TINGLING IN HIS RIGHT FINGERS HIS BLOCK IS BEGINNING TO WEAR OFF. PATIENT IS ON 3LNC D/T DESATTING IN PACU. CPOX IN PLACE. LUNG SOUNDS ARE CLEAR. SCD IS BACK IN PLACE TO RIGHT LEG. PATIENT'S RIGHT ARM IS ELEVATED ON A PILLOW. PACU NURSE REPORTS THAT PATIENT HAS ALREADY HAD SOME WATER AND TOLERATED THIS WELL. PATIENT DENIES NAUSEA, ENDORSES FEELING HUNGRY. NO OTHER REQUESTS, CALL LIGHT AND PERSONAL BELONGINGS IN REACH. PATIENT'S GIRLFRIEND IN ROOM THROUGHOUT.
[2024-12-09] MEDS ORDERED: INSULIN GLARGINE-YFGN 100 UNIT/ML ML SUB-Q ONE (11:30)
--- NOTE | 2024-12-09 11:34 | NUR ---
PATIENT IS RESTING IN BED WITH RIGHT ARM ELEVATED ON TWO PILLOWS WITH ICE PACKS IN PLACE. PATIENT REPORTS RIGHT HAND PAIN IS 3/10, PRN TYLENOL ADMINISTERED ORDERED. SPO2 SUSTAINS>98% ON 3L OXYGEN, PATIENT IS TITRATED TO 1L OXYGEN VIA NC AND SUSTAINS SPO2>95%. PATIENT REMAINS ON 1LNC AT THIS TIME. DR MUKHERJEE IN TO VISIT PATIENT. DR MUKHERJEE REMOVES ALLEVYN TO WOUND ON PATIENT'S LEFT FOREARM. WOUND IS CLEANSED WITH WOUND PACKAGE DELIVERY DRIVER AND GAUZE, PATTED DRY, AND LEFT OPEN TO AIR PER DR MUKHERJEE'S INSTRUCTION. PATIENT SUPPLIED WITH ICE WATER AND SALTINES. PATIENT EATES SALTINES AND DRINKS WATER, TOLERATES WELL, CONTINUES TO DENY NAUSEA. PATIENT BEGINS TO EAT HIS STRING CHEESE. FINGERS TO RIGHT HAND ARE WARM AND HAVE CAPILLARY REFILL LESS THAN 3 SECOND, PATIENT REPORTS SOME MILD TINGLING. IV TO PATIENT'S LEFT FOREARM IS SALINE LOCKED AT THIS TIME. ROGER LOVE IN TO CHECK BLOOD GLUCOSE. PATIENT REPORTS HE NEEDS TO VOID. PATIENT USES URINAL AND VOIDS WITHOUT ISSUE. PATIENT'S GIRLFRIEND REMAINS PRESENT IN ROOM THROUGHOUT, BED IS IN LOWEST POSITION, PATIENT HAS NO OTHER REQUESTS, CALL LIGHT AND PERSONAL BELONGINGS IN REACH.
--- NOTE | 2024-12-09 12:13 | NUR ---
PATIENT IS SITTING UP IN BED EATING LUNCH, HE IS TOLERATING THIS WELL. HE HAS REMOVED HIS NASAL CANULA AND IS SUSTAINING AN SPO2>95% ON ROOM AIR. VS OBTAINED AND RECORDED. PATIENT HAS NO REQUESTS, CALL LIGHT AND PERSONAL BELONGINGS IN REACH.
--- NOTE | 2024-12-09 13:47 | NUR ---
INTO SEE PATIENT. IMM LETTER COMPLETED. NO FUTHER CM NEEDS.
--- NOTE | 2024-12-09 14:30 | NUR ---
FINAL SET OF POST-OP VS COMPLETED. PATIENT RESTING IN RECLINER WATCHING TELEVISION. REPORTS PAIN TO HIS RIGHT HAND IS 3/10 AND VERY TOLERABLE WITH THE ICE PACKS, DECLINES PAIN MEDICATION. FINGERS ON THE RIGHT HAND HAVE FULL SENSATION AND ARE PINK AND WARM WITH BRISK CAP REFILL. PATIENT DENIES NUMBNESS OR TINGLING. PATIENT IS ON ROOM AIR, NO COMPLAINTS OF DISCOMFORT. NO REQUESTS. CALL LIGHT AND PERSONAL BELONGINGS IN REACH.
--- NOTE | 2024-12-09 15:12 | NUR ---
PATIENT RESTING IN RECLINER WITH BLE ELEVATED, EYES CLOSED, RR EVEN AND UNLABORED. CPOX AT CHAIRSIDE, CALL LIGHT AND PERSONAL BELONGINGS IN REACH.
[2024-12-09] MEDS ORDERED: POLYETHYLENE GLYCOL 3350 1 PACKET PO SCH ×2 (15:45→21:00)
--- NOTE | 2024-12-09 17:11 | NUR ---
MEDICATION ADMINISTERED, SEE MAR. PATIENT IN RECLINER WITH SUPPER TRAY, REQUIRES ASSISTANCE TO OPEN AND SET UP SOME THINGS ON HIS TRAY. NO REQUESTS, CALL LIGHT AND PERSONAL BELONGINGS IN REACH.
--- NOTE | 2024-12-09 17:48 | NUR ---
VS AND I&Os OBTAINED. PATIENT AGREEABLE TO ICE PACKS FOR HIS RIGHT HAND. TWO ICE PACKS SUPPLIED AND PILLOWS POSITIONED UNDER RIGHT ARM AND HAND FOR COMFORT. PATIENT REMAINS UP IN RECLINER WATCHING TELEIVISON, DINNER TRAY REMOVED. CALL LIGHT AND PERSONAL BELONGINGS IN REACH.
--- NOTE | 2024-12-09 19:15 | NUR ---
SHIFT REPORT RECEIVED FROM DAYSHIFT BEATRICE JIMENEZ. pt AWAKE AND RESTING IN RECLINER WITH BLE ELEVATED. RIGHT HAND DRESSING C/D/I, ELEVATED WITH PILLOWS IN RECLINER AND ICE IN PLACE. PER REPORT, pt REMOVES ICE NEEDED. pt A/OX4. CPOX IN PLACE, SPO2 AND HR WNL. IV SITE WNL, SALINE LOCKED. pt IN GOOD SPIRITS AND DENEIS NEEDS OR CONCERNS, VERBALIZED UNDERSTANDING TO NOT GET OUT OF RECLINER W/O STAFF. CALL LIGHT AND PERSONAL BELONGINGS IN REACH. BOARD UPDATED.
--- NOTE | 2024-12-09 20:03 | NUR ---
CALL LIGHT ANSWERED. PT NEEDED TO USE BATHROOM. MAKE READY WORKER SBA TO BATHROOM. PT HAD BM AND ASSISTED BACK TO CHAIR. CPOX RECONNECTED. PT STATES NO FURTHER NEEDS AT THIS TIME. CALL LIGHT WITHIN REACH.
--- NOTE | 2024-12-09 20:37 | NUR ---
rounded on pt, pt sitting in recliner with cecilia campos in room. pt continues to be able to wiggle all fingers to right hand, denies needs or concerns. call light in reach.
--- NOTE | 2024-12-09 20:52 | NUR ---
AUTOMOBILE RADIO REPAIRER OBTAINED VITALS AND I&O. PT MOVED FROM CHAIR TO BED. BLOOD SUGAR OBTAINED. ICE WATER REFILLED AND SCDS PLACED. PT STATES NO FURTHER NEEDS AT THIS TIME. CALL LIGHT WITHIN REACH.
--- NOTE | 2024-12-09 21:47 | NUR ---
assessment complete, vss. pt awake and resting in bed, on ra. rr even and unlabored. no distress noted. cap refill to right hand wnl, skin temp wnl and dressing remains c/d/i. pt continues to be able to wiggle all fingers and able to determine which fingers are being touch with eyes closed. cpox remains in place. iv site wnl, flushes easily and saline locked. room tidied and no additional needs or concerns verbalized. call light in reach.
--- NOTE | 2024-12-09 22:40 | NUR ---
cpox alarming, spo2 83% on ra. pt placed on 2lnc, spo2 improved to 95%. rt jackson aware. will continue to monitor.
--- NOTE | 2024-12-09 23:19 | NUR ---
rounded on pt, pt resting in bed. on 2lnc. scd's in place to rle. unable to on lle d/t stump. call light in reach. spo2 mid 90's, hr wnl.
--- NOTE | 2024-12-09 23:42 | NUR ---
PRN NORCO GIVEN FOR REPORTED 5/10 PAIN TO RIGHT HAND, SEE EMAR. NO ADDITIONAL NEEDS. CALL LIGHT IN REACH.
[2024-12-10] VITALS (12 sets, daily range): BP systolic 132–154; BP diastolic 77–98
--- NOTE | 2024-12-10 01:01 | NUR ---
ARCHITECTURE FACULTY MEMBER OBTAINED VITALS AND I&O. PT STATES NO NEEDS AT THIS TIME. CALL LIGHT WITHIN REACH.
--- NOTE | 2024-12-10 01:18 | NUR ---
rounded on pt, pt resting quietly in bed, 2lnc in place. spo2 93%, hr 104. rr even and unlabored, no distress noted. call light and personal belongings in reach.
--- NOTE | 2024-12-10 02:45 | NUR ---
rounded on pt, pt awoke to voice. fresh ice pack wrapped w/ pillowcase to right hand. right hand elevated on pillows. no needs or concerns verbalized, call light in reach.
--- NOTE | 2024-12-10 03:09 | NUR ---
O2 TITRATED FROM 2LNC TO 1LC WITH O2 SATS MAINTAINING ABOVE 90%. CALL LIGHT IN REACH.
--- NOTE | 2024-12-10 03:51 | NUR ---
spo2 in low 80's, suspecting sleep apnea per report. pt titrated from 1lnc to 2lnc. cpox remains at bedside.
[2024-12-10 05:03] LABS: BASOPHILS 0.9 % (0.2-1.2); EOSINOPHILS 6.3 % (0.8-7.0); HEMATOCRIT 38.8 % (40.1-51.0); HEMOGLOBIN 12.1 g/dL (13.7-17.5); LYMPHOCYTES 24.9 % (21.8-53.1); MCH 26.1 PG (25.7-32.2); MCHC 31.2 g/dL (32.3-36.5); MCV 83.8 fL (79.0-92.2); MONOCYTES 8.3 % (5.3-12.2); NEUTROPHILS 59.4 % (34.0-67.9); PLATELET COUNT 289 K/uL (163-337); RBC 4.63 M/uL (4.63-6.08)
--- NOTE | 2024-12-10 05:14 | NUR ---
focused assessment complete, no acute changes. pt remains on 2lnc, cpox at bedside. dressing remains c/d/i to right hand, strong radial pulse. cap refill wnl and skin warm to the touch and pink in color. pt able to wiggle all fingers. pt able to tell which fingers are being touched correctly, but answers are at times delayed d/t neuropathy. iv site flushed and saline locked, wnl. scd's in place to rle. no further needs or concerns verbalized when asked, fresh ice bag to right hand wrapped in pillowcase at bedside and pt applying ice pack as needed.
[2024-12-10 05:15] LABS: ANION GAP 8.1 (7-21); BUN/CREATININE RATIO 11.49 (6.0-28.6); CREATININE, SERUM 0.87 mg/dL (0.70-1.30); MAGNESIUM 1.9 mg/dL (1.8-2.4); POTASSIUM 4.1 mmol/L (3.5-5.1)
--- NOTE | 2024-12-10 06:45 | NUR ---
rounded on pt, pt awake and removed his o2 as he plans to stay awake, spo2 94% on ra. cpox remains at bedside. iv site wnl, remains saline locked. dressing remains c/d/i, pt tolerating ice packs wrapped w/ pillow case. currently in place. pt a/ox4. no additional needs or concerns. right hand remains elevated with pillows x2.
--- NOTE | 2024-12-10 07:06 | NUR ---
Pt report received from BEATRICE Resendiz.
--- NOTE | 2024-12-10 07:35 | NUR ---
Pt sitting up in chair, watching TV. White board updated, call light in reach.
[2024-12-10] MEDS ORDERED: INSULIN GLARGINE-YFGN 100 UNIT/ML ML SUB-Q SCH (09:00)
--- NOTE | 2024-12-10 12:07 | NUR ---
PT RESTS IN RECLINER, WATCHES TV, ICE WATER PROVIDED PER PT REQUETS. CALL LIGHT IN REACH, NO REQUESTS AT THIS TIME. CPOX D/C'D.
--- NOTE | 2024-12-10 14:22 | NUR ---
PATIENT SHOWERED WITH SET UP ASSIST. RIGHT HAND AND IV SITE WRAPPED. GOWN, SOCK, AND BED LINENS WERE CHANGED.
--- NOTE | 2024-12-10 19:41 | NUR ---
RECEIVED REPORT FROM BEATRICE MIRANDA. PATIENT IS RESTING IN CHAIR, NO NEEDS IDENTIFIED, CALL LIGHT IN REACH. RESPIRATIONS ARE EVEN AND UNLABORED.
--- NOTE | 2024-12-10 20:53 | NUR ---
PATIENT SITTING IN CHAIR. VITAL SIGNS, I&OS, BG, WERE DONE. WATER REFRESHED. CALL LIGHT IN REACH NO FURTHER NEEDS AT THIS TIME.
--- NOTE | 2024-12-10 21:10 | NUR ---
SCHEDULED MEDICATIONS ADMINISTERED PER ORDER. PATIENT REMAINS SITTING UPRIGHT IN CHAIR AND REPORTS TOLERABLE PAIN AND STATES HE IS COMFORTABLE. REPORTS THAT HIS SENSATION AND MOVEMENT IN RIGHT ARM/HAND IS AT BASELINE. DENIES ANY FURTHER NEEDS AT THIS TIME, CALL LIGHT IN REACH
--- NOTE | 2024-12-10 23:11 | NUR ---
ROUNDED ON PATIENT, PATIENT RESTING WITH EYES CLOSED, RESPIRATIONS ARE EVEN AND UNLABORED. CPOX PLACED ON PATIENT, NO NEEDS, CALL LIGHT IN REACH
--- NOTE | 2024-12-11 00:32 | NUR ---
CPOX ALARMING, SPO2 READING 85% WITH PATIENT SLEEPING. 1L O2 NC PLACED ON PATIENT AT THIS TIME. RESPIRATIONS ARE EVEN AND UNLABORED. NO SIGNS ACUTE DISTRESS. NO FURTHER NEEDS, CALL LIGHT IN REACH
--- NOTE | 2024-12-11 02:28 | NUR ---
ROUNDED ON PATIENT, PATIENT RESTING WITH EYES CLOSED, 1L O2 NC IN PLACE. CPOX AT BEDSIDE. CALL LIGHT IN REACH, RESPIRATIONS EVEN AND UNLABORED. NO NEEDS.
[2024-12-11 05:19] LABS: BASOPHILS 0.7 % (0.2-1.2); EOSINOPHILS 4.3 % (0.8-7.0); HEMATOCRIT 40.6 % (40.1-51.0); HEMOGLOBIN 12.8 g/dL (13.7-17.5); LYMPHOCYTES 23.9 % (21.8-53.1); MCH 26.1 PG (25.7-32.2); MCHC 31.5 g/dL (32.3-36.5); MCV 82.7 fL (79.0-92.2); NEUTROPHILS 60.9 % (34.0-67.9); PLATELET COUNT 320 K/uL (163-337); RBC 4.91 M/uL (4.63-6.08)
[2024-12-11 05:32] LABS: ANION GAP 10.9 (7-21); BUN/CREATININE RATIO 10.98 (6.0-28.6); CALCIUM 9.1 mg/dL (8.5-10.1); CREATININE, SERUM 0.91 mg/dL (0.70-1.30); MAGNESIUM 1.9 mg/dL (1.8-2.4); POTASSIUM 3.9 mmol/L (3.5-5.1)
[2024-12-11 06:16] VITALS: BP 125/78
--- NOTE | 2024-12-11 06:24 | NUR ---
PATIENT SITTING UPRIGHT IN CHAIR, CPOX AT BEDSIDE. PATIENT ON ROOM AIR, SPO2 WNL. PATIENT DENIES ANY NEEDS AT THIS TIME, CALL LIGHT IN REACH
--- NOTE | 2024-12-11 07:14 | NUR ---
VERBAL REPORT RECEIVED FROM BEATRICE ALEXANDER. PT SITS UP IN RECLINER, AWAKE AND ALERT, CALL LIGHT IN REACH, NO REQUESTS AT THIS TIME.
--- NOTE | 2024-12-11 08:36 | NUR ---
THIS DELIVERY HELPER IN TO DO BLOOD SUGAR AND MORNING ROUNDS. BLOOD SUGAR DONE AND CHARTED. PATIENT UP IN CHAIR AT THIS TIME. CALL LIGHT IN REACH. NO FURTHER NEEDS AT THIS TIME.
[2024-12-11] MEDS ORDERED: ENOXAPARIN SODIUM 40 MG/0.4 ML SYR SUB-Q SCH (09:00)
[2024-12-11] MEDS ORDERED: BACTRIM DS TAB1 EACH PO (09:12)
[2024-12-11] MEDS ORDERED: DAPTOmycin 500 MG/10 ML VIAL IV ONE (09:30)
--- NOTE | 2024-12-11 09:56 | NUR ---
PT DRESSES SELF AND GATHERED BELONGINGS. S/O HERE TO TRANSPORT HOME. DISCUSSED DISCHARGE INSTRUCTIONS WITH PT, PT VERBALIZES UNDERSTANDING. IV REMOVED, TIP INTACT, GAUZE AND COBAN DRESSING APPLIED TO SITE, PT TOLERATED WELL. VSS. PT LEAVES UNIT VIA WHEELCHAIR, ESCORTED BY THIS RN TO PRIVATE CAR DRIVEN BY S/O.
--- NOTE | 2024-12-12 08:54 | OR ---
[facility] [address], [place] [address] Signed DATE OF OPERATION: 12/09/2024 SURGEON: Mary Renee MD PREOPERATIVE DIAGNOSIS: Osteomyelitis, flexor tenosynovitis, right middle finger with gangrene. POSTOPERATIVE DIAGNOSIS: Osteomyelitis, flexor tenosynovitis, right middle finger with gangrene. PROCEDURES PERFORMED: 1. Irrigation and debridement of skin, subcutaneous tissue and bone, right middle finger. 2. Delayed primary closure, right middle finger. CHEMIST: None. ANESTHESIA: General. BLOOD LOSS: Minimal. TOURNIQUET TIME: Zero. BRIEF HISTORY: Carlos Manuel is a 63-year-old gentleman who underwent a guillotine amputation of his middle finger and washout of flexor tendon sheath two days ago. He was kept on IV antibiotics and his white count and fevers normalized. He was brought back to the operating room today for repeat irrigation and debridement and possible closure. Risks, benefits, and alternatives were discussed. He understood, wished to proceed. DESCRIPTION OF PROCEDURE: Once consent was obtained, he was taken to the operating room. After adequate anesthesia he was placed on operating room bed. All downside pressure points were well padded, hand table was brought in. The arm was then prepped and draped in the standard sterile fashion. The old dressing was removed prior to this. The soft tissue was inspected. The soft tissue was clean with no evidence of residual infection. There was no cellulitis. The flexor tendon sheath was then palpated from the amputation stump up Electronically Signed By: MARY RENEE MD 12/12/24 0854 PATIENT NAME: CARLOS MANUEL HERMAN OPERATIVE REPORT DATE OF : 60 REPORT #: [id number] PHYSICIAN: MARY RENEE MD PCP: TIMO HARVEY MD REPORT IS CONFIDENTIAL AND NOT TO BE RELEASED WITHOUT AUTHORIZATION [facility] [address], [place] [address] Signed to the mid palmar space, was found to be without any purulent material. The skin of the amputation stump was then sharply debrided into the finger and the flexor tendon sheath were irrigated using a 14-gauge Jelco. Once this was completed, the proximal phalanx was shortened about 4 mm proximally to allow good closure with no tension. The skin flap was then brought anteriorly and the deep tissues were closed with 2-0 Monocryl. The skin was closed with 3-0 nylon and the palmar incision was closed with 3-0 nylon. Prior to starting all this, we did do a digital block with 10 mL of 0.25% plain Marcaine. Once all the wounds were closed, the skin was carefully cleansed and dressed with Adaptic, sterile gauze and a bulky hand dressing. He tolerated the procedure well. All sponge, needle, and instrument counts were correct. Mary Renee MD BA/URI /[id number] Copies: ~ Electronically Signed By: MARY RENEE MD 12/12/24 0854 PATIENT NAME: CARLOS MANUEL HERMAN OPERATIVE REPORT DATE OF : 60 REPORT #: [id number] PHYSICIAN: MARY RENEE MD PCP: TIMO HARVEY MD REPORT IS CONFIDENTIAL AND NOT TO BE RELEASED WITHOUT AUTHORIZATION
--- NOTE | 2024-12-12 17:49 | PATH ---
[facility] [address], [place] [address] Signed SPECIMEN(S): A RIGHT MIDDLE FINGER SPECIMEN SOURCE: A. RIGHT MIDDLE FINGER CLINICAL HISTORY: Osteomyelitis/cellulitis right middle finger FINAL PATHOLOGIC DIAGNOSIS: Right middle finger, amputation: - Distal skin and soft tissue with ulceration, soft tissue abscess, and acute osteomyelitis. - Proximal skin and soft tissue margin viable with soft tissue acute inflammation. - No malignancy identified. [facility] MICROSCOPIC EXAMINATION: Histologic sections of all submitted blocks are examined by light microscopy. These findings, together with the gross examination, support the pathologic diagnosis. GROSS DESCRIPTION: The specimen, labeled and designated "Carlyle Kruse, right middle finger per requisition," is received in formalin and consists of a 9.3 x 3.4 x 3.2 cm finger that has been amputated through the metacarpal bone. The skin is grey with intact fingernail. There are multiple areas of ulceration on the dorsal and palmar aspect of the finger measuring 2.8 x 2.5 cm and 3.1 x 2.3 cm. Underlying bone is difficult to cut through with a scalpel but appears diffusely hemorrhagic. The underlying soft tissue is purulent and somewhat necrotic. The remainder of the skin is grey with epithelial sloughing. The skin and soft tissue at the amputation margin are relatively unremarkable. The bone of the amputation margin is firm and homogeneous. Amputation margin is inked blue and the specimen is serially sectioned. [employer] sections are submitted as follows: Cassette Summary: (A1) area of ulceration with underlying bone, decal in decal stat (A2) skin and soft tissue margin with bony margin, decal in decal stat AA (under the direct supervision of a pathologist) PATIENT NAME: JEF KRUSE PATHOLOGY DATE OF : 60 REPORT #: [id number] PHYSICIAN: CRESENCIO PATHOLOGY PCP: TIMO HARVEY MD REPORT IS CONFIDENTIAL AND NOT TO BE RELEASED WITHOUT AUTHORIZATION [facility] [address] [place] [id number] Signed The Gross Description was prepared using a voice recognition system. The report was reviewed for accuracy; however, sound-alike word errors, addition and/or deletions may occur. If there is any question about this report, please contact Client Services. ADDITIONAL NOTES: Immunohistochemical and/or in situ hybridization studies if performed in this case included appropriate positive controls that reacted as expected. This test was developed and its performance characteristics determined by [email or web address]. It has not been cleared or approved by the U.S. Food and Drug Administration. The FDA has determined that such clearance or approval is not necessary. This test is used for clinical purposes. It should not be regarded as investigational or for research. [email or web address] is certified under the Clinical Laboratory Improvement Amendments of 1988 (CLIA) as qualified to perform high complexity clinical laboratory testing. PERFORMING LABORATORY: Technical component was performed by [email or web address], [address] [place] [id number] (CLIA# [id number]). Professional interpretation was performed by [facility], [address] [place] [id number] (CLIA#: [id number]). Diagnostician: Juan Alberto Montero MD Pathologist Electronically Signed 12/12/2024 Copies: ~ PATIENT NAME: JEF KRUSE PATHOLOGY DATE OF : 60 REPORT #: [id number] PHYSICIAN: CRESENCIO PATHOLOGY PCP: TIMO HARVEY MD REPORT IS CONFIDENTIAL AND NOT TO BE RELEASED WITHOUT AUTHORIZATION
== END 2024-12-11 09:56 | disposition home or self-care (01) | DRG 256 ==
LOC: ED 16:51 → MS 16:53
PROVIDERS: Emergency Medicine; Specialist; ADMIT Student in an Organized Health Care Education/Training Program; ATTEND Student in an Organized Health Care Education/Training Program
PROC: 0X6Q0Z1 Detachment at Right Middle Finger, High, Open Approach (ICD-10-PCS; 2024-12-07)
PROC: 0PBT0ZZ Excision of Right Finger Phalanx, Open Approach (ICD-10-PCS; principal; 2024-12-09 10:15)
DX: E11.52 Type 2 diabetes mellitus with diabetic peripheral angiopathy with gangrene (principal); I13.0 Hypertensive heart and chronic kidney disease with heart failure and stage 1 through stage 4 chronic kidney disease, or unspecified chronic kidney disease; I50.22 Chronic systolic (congestive) heart failure; M86.141 Other acute osteomyelitis, right hand; E11.69 Type 2 diabetes mellitus with other specified complication; L03.011 Cellulitis of right finger; E11.42 Type 2 diabetes mellitus with diabetic polyneuropathy; K21.9 Gastro-esophageal reflux disease without esophagitis; Z88.1 Allergy status to other antibiotic agents; I25.10 Atherosclerotic heart disease of native coronary artery without angina pectoris; Z95.5 Presence of coronary angioplasty implant and graft; I25.2 Old myocardial infarction; E78.5 Hyperlipidemia, unspecified; Z89.512 Acquired absence of left leg below knee; Z79.82 Long term (current) use of aspirin; Z79.899 Other long term (current) drug therapy; Z79.4 Long term (current) use of insulin; K59.09 Other constipation; N18.9 Chronic kidney disease, unspecified; E11.22 Type 2 diabetes mellitus with diabetic chronic kidney disease; E66.9 Obesity, unspecified; J44.9 Chronic obstructive pulmonary disease, unspecified; M65.841 Other synovitis and tenosynovitis, right hand
CPT/HCPCS: 01830; 36415; 64417; 73140; 76942; 80048; 80053; 83605; 83735; 85025; 85610; 87040; 87070; 87075; 87186; 87205; 88305; 88311; 94762; 94799; 96365; 96375; 97161; 97165; 97535; 99284-25; A9270; G0378; J0878; J1650; J1815; J2405; J2543; J2704; J2795; J3010; J7030; J7121